=== PATIENT | male | born 1935 | race Caucasian/White ===

== ENCOUNTER → 2017-03-27 | Outpatient (CLI) | payer MEDICARE ==
[~2017-03-27] MED LIST: AMLO5TAB2 PO; ASPI-9 PO; BUDE10.2 IH; CNC1KV IJ; FLUC100T PO; LOVA20TA2 PO; METO-395 PO; NAPR500T4 PO; OMEG-109 PO; OMEP20CA12 PO; RT-ALBUTEROL SULF 2.5 MG/3 ML PRE-MIX VIAL INH ONE; TIOT4MIS2 IH
== END ==
LOC: RT 11:12
PROVIDERS: ATTEND Thoracic Surgery (Cardiothoracic Vascular Surgery)
DX: I71.4 Abdominal aortic aneurysm, without rupture (principal)
CPT/HCPCS: 94060; 94726; 94729

== ENCOUNTER → 2017-04-03 | Outpatient (CLI) | payer MEDICARE ==
[~2017-04-03] VITALS: Ht 182.9 cm; Wt 106.6 kg
[~2017-04-03] MED LIST changes: +REGADENOSON 0.4 MG/5 ML SYR (LEXISCAN) IV ONE; -RT-ALBUTEROL SULF 2.5 MG/3 ML PRE-MIX VIAL INH ONE
[2017-04-03] MEDS: CATHETER FLUSH 10 ML SYR IV PRN ×2 (07:47→09:07)
[2017-04-03 09:04] VITALS: BP 174/79
--- NOTE | 2017-04-03 18:01 | STRESS TEST ---
DATE OF SERVICE: 04/03/2017 LEXISCAN MYOVIEW STRESS TEST REPORT Baseline heart rate is 47. Baseline blood pressure 174/79. Baseline EKG is sinus bradycardia with no ischemic changes. In summary, the patient was injected with 10.65 mCi of technetium-99 Myoview and the resting images were obtained. Then, the patient received 0.4 mg of Lexiscan followed by 30.8 mCi of technetium-99 Myoview. Throughout the test, there were no EKG changes. The resting and stress images were reviewed and compared in the short axis, horizontal long axis, and vertical long axis views. Review of the images showed good radiotracer uptake with no significant ischemia or infarction on SPECT images. SSS is 4, SDS 4, TID value 1.06. On the gated images, the left ventricle appeared to be normal size with normal contractility, calculated ejection fraction 56%. CONCLUSION: 1. The patient tolerated Lexiscan well. 2. No ischemia or infarction on SPECT images. 3. Normal left ventricular size with normal contractility. Calculated ejection fraction 56%. Job ID: [id number] DocumentID: [id number] Dictated Date: 04/03/2017 14:32:58 [employer] Tech Date: 04/03/2017 18:01:16 Dictated By: MORIAH HAMMOND MD
== END ==
LOC: CARD 07:20
PROVIDERS: ATTEND Internal Medicine Cardiovascular Disease
DX: I71.4 Abdominal aortic aneurysm, without rupture (principal)
CPT/HCPCS: 78452; 93017

== ENCOUNTER → 2017-06-15 | Outpatient (CLI) | payer MEDICARE ==
[~2017-06-15] MED LIST changes: +NAPR-915 PO; -NAPR500T4 PO; -REGADENOSON 0.4 MG/5 ML SYR (LEXISCAN) IV ONE
[2017-06-15 11:23] LABS: CALCIUM 9.2 MG/DL (8.5-10.1); CREATININE SERUM 1.22 MG/DL (0.60-1.30); POTASSIUM 4.1 MMOL/L (3.6-5.0)
== END ==
LOC: LAB 10:45
PROVIDERS: ATTEND Thoracic Surgery (Cardiothoracic Vascular Surgery)
DX: I70.1 Atherosclerosis of renal artery (principal)
CPT/HCPCS: 36415; 80048

== ENCOUNTER → 2018-05-07 | Outpatient (CLI) | payer MEDICARE ==
[~2018-05-07] MED LIST changes: -AMLO5TAB2 PO; +AMLO5TAB9 PO
--- NOTE | 2018-05-07 15:08 | Diagnostic Imaging Report ---
PROCEDURE: CT head without contrast. TECHNIQUE: Multiple contiguous axial images were obtained through the brain without the use of intravenous contrast. Auto Exposure Controls were utilized during the CT exam to meet ALARA standards for radiation dose reduction. INDICATION: Dementia and unsteady gait. COMPARISON: No prior studies are available for comparison. FINDINGS: The ventricles and sulci are prominent consistent with the patient's age. No sulcal effacement or midline shift is identified. No acute intra-axial or extra-axial hemorrhage is detected. The cisterns are patent. The visualized paranasal sinuses are clear. IMPRESSION: No acute intracranial process is detected. Dictated by: Dictated on workstation # [id number]
== END ==
LOC: RAD 14:23
PROVIDERS: ATTEND Internal Medicine
DX: F03.90 Unspecified dementia, unspecified severity, without behavioral disturbance, psychotic disturbance, mood disturbance, and anxiety (principal); J44.9 Chronic obstructive pulmonary disease, unspecified
CPT/HCPCS: 70450

== ENCOUNTER 2018-06-09 01:33 | Inpatient (IN) | payer MEDICARE ==
[2018-06-09] VITALS (13 sets, daily range): BP systolic 79–160; BP diastolic 39–106
[~2018-06-09] VITALS: Ht 182.9 cm; Wt 93.0 kg
[~2018-06-09 01:33] MED LIST changes: -CNC1KV IJ; +CNC1KV IM
--- OUTSIDE RECORDS SUMMARY | 2018-06-09 01:38 | XMS REPORT | Continuity of Care Document ---
Author Organization Unknown Address Unknown Allergies Active Description Code Type Severity Reaction Onset Reported/Identified Relationship to Patient Clinical Status Yes No Known Drug Allergies [id number] Drug Allergy Unknown N/A 08/12/2014 Medications There is no data. 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 01/31/2015 JASON PHELAN DO, Ot E53.8 DEFICIENCY OF OTHER SPECIFIED B GROUP 01/31/2015 JASON PHELAN DO, Ot E78.5 HYPERLIPIDEMIA, UNSPECIFIED 01/31/2015 JASON PHELAN DO, Ot G47.33 OBSTRUCTIVE SLEEP APNEA (ADULT) (PEDIATR 01/31/2015 JASON PHELAN DO Ot I10 ESSENTIAL (PRIMARY) HYPERTENSION 01/31/2015 JASON PHELAN DO, Ot I71.4 ABDOMINAL AORTIC ANEURYSM, WITHOUT RUPTU 01/31/2015 JASON PHELAN DO, Ot I87.2 VENOUS INSUFFICIENCY (CHRONIC) (PERIPHER 01/31/2015 JASON PHELAN DO, Ot J44.0 01/31/2015 JASON PHELAN DO, Ot J44.1 CHRONIC OBSTRUCTIVE PULMONARY DISEASE W 01/31/2015 JASON PHELAN DO Ot K21.9 GASTRO-ESOPHAGEAL REFLUX DISEASE WITHOUT 01/31/2015 JASON PHELAN DO Ot M15.9 POLYOSTEOARTHRITIS, UNSPECIFIED 01/31/2015 JASON PHELAN DO Ot R09.02 HYPOXEMIA 01/31/2015 JASON PHELAN DO Ot Z23 ENCOUNTER FOR IMMUNIZATION 01/31/2015 JASON PHELAN DO Ot Z87.891 PERSONAL HISTORY OF NICOTINE DEPENDENCE 03/26/2017 JASON PHELAN DO Ot 786.09 RESPIRATORY ABNORM NEC 03/26/2017 JASON PHELAN DO Ot 496 CHR AIRWAY OBSTRUCT NEC 03/28/2017 XAVI RIOS MD Ot I71.4 ABDOMINAL AORTIC ANEURYSM, WITHOUT RUPTU 04/03/2017 JASON PHELAN DO Ot 786.09 RESPIRATORY ABNORM NEC 04/03/2017 JASON PHELAN DO Ot 496 CHR AIRWAY OBSTRUCT NEC 04/03/2017 XAVI RIOS MD Ot I71.4 ABDOMINAL AORTIC ANEURYSM, WITHOUT RUPTU 04/17/2017 XAVI RIOS MD Ot I71.4 ABDOMINAL AORTIC ANEURYSM, WITHOUT RUPTU 04/23/2017 MORIAH HAMMOND MD Ot I71.4 ABDOMINAL AORTIC ANEURYSM, WITHOUT RUPTU 04/25/2017 XAVI RIOS MD Ot I71.4 ABDOMINAL AORTIC ANEURYSM, WITHOUT RUPTU 05/03/2017 MORIAH HAMMOND MD Ot I71.4 ABDOMINAL AORTIC ANEURYSM, WITHOUT RUPTU 06/17/2017 XAVI RIOS MD Ot I70.1 ATHEROSCLEROSIS OF RENAL ARTERY 06/19/2017 XAVI RIOS MD Ot I70.1 ATHEROSCLEROSIS OF RENAL ARTERY 07/04/2017 XAVI RIOS MD Ot I70.1 ATHEROSCLEROSIS OF RENAL ARTERY 05/06/2018 JASON PHELAN DO Ot 786.09 RESPIRATORY ABNORM NEC 05/06/2018 JASON PHELAN DO Ot 496 CHR AIRWAY OBSTRUCT NEC 05/06/2018 XAVI RIOS MD Ot I71.4 ABDOMINAL AORTIC ANEURYSM, WITHOUT RUPTU 05/06/2018 MORIAH HAMMOND MD Ot I71.4 ABDOMINAL AORTIC ANEURYSM, WITHOUT RUPTU 05/06/2018 XAVI IROS MD Ot I70.1 ATHEROSCLEROSIS OF RENAL ARTERY 05/09/2018 JASON PHELAN DO Ot F03.90 UNSPECIFIED DEMENTIA WITHOUT BEHAVIORAL 05/09/2018 JASON PHELAN DO Ot J44.9 CHRONIC OBSTRUCTIVE PULMONARY DISEASE, U 06/03/2018 JASON PHELAN DO Ot F03.90 UNSPECIFIED DEMENTIA WITHOUT BEHAVIORAL 06/03/2018 JASON PHELAN DO Ot J44.9 CHRONIC OBSTRUCTIVE PULMONARY DISEASE, U 06/04/2018 JASON PHELAN DO Ot F03.90 UNSPECIFIED DEMENTIA WITHOUT BEHAVIORAL 06/04/2018 JASON PHELAN DO, Ot J44.9 CHRONIC OBSTRUCTIVE PULMONARY DISEASE, U Procedures There is no data. Results Test Result Range Whole blood basic metabolic panel - 06/15/17 11:02 Serum or plasma sodium measurement (moles/volume) 135 mmol/L 135-145 Serum or plasma potassium measurement (moles/volume) 4.1 mmol/L 3.6-5.0 Serum or plasma chloride measurement (moles/volume) 100 mmol/L 98-107 Carbon dioxide 26 mmol/L 21-32 Serum or plasma anion gap determination (moles/volume) 9 mmol/L 5-14 Serum or plasma urea nitrogen measurement (mass/volume) 19 mg/dL 7-18 Serum or plasma creatinine measurement (mass/volume) 1.22 mg/dL 0.60-1.30 Serum or plasma urea nitrogen/creatinine mass ratio 16 NRG Serum or plasma creatinine measurement with calculation of estimated glomerular filtration rate 57 NRG Serum or plasma glucose measurement (mass/volume) 93 mg/dL 70-105 Serum or plasma calcium measurement (mass/volume) 9.2 mg/dL 8.5-10.1 Encounters ACCT No. Visit Date/Time Discharge Status Pt. Type Provider Facility Loc./Unit Complaint [id number] 05/07/2018 14:23:00 05/07/2018 23:59:59 CLS Outpatient JASON PHELAN DO [facility] RAD COPD [id number] 06/15/2017 10:45:00 06/15/2017 23:59:59 CLS Outpatient XAVI RIOS MD [facility] LAB I70.1 [id number] 04/03/2017 07:20:00 04/03/2017 23:59:59 CLS Outpatient MORIAH HAMMOND MD [facility] CARD ABD AORTIC ANEURYSM [id number] 03/27/2017 11:12:00 03/27/2017 23:59:59 CLS Outpatient XAVI RIOS MD [facility] RT ABD AORTIC ANEURYSM [id number] 03/25/2017 13:46:00 03/25/2017 23:59:59 CLS Preadmit BLANCA TALBOT, XAVI Ortega [facility] CARD ABD AORTIC ANEURYSM [id number] 01/24/2015 12:13:00 01/31/2015 13:20:00 DIS Inpatient JASON PHELAN DO [facility] 4TH PNUEMONIA [id number] 08/27/2014 14:10:00 08/27/2014 23:59:59 CLS Outpatient JASON PHELAN DO [facility] RT COPD [id number] 08/12/2014 06:33:00 08/12/2014 23:59:59 CLS Outpatient JASON PHELAN DO [facility] CARD DSYPNEA [id number] 09/04/2013 20:02:00 09/05/2013 06:30:00 DIS Outpatient JASON PHELAN DO [facility] SLEEP CEDRIC,AMI 23 [id number] 06/09/2018 01:35:00 ACT Emergency ORLY TALBOT, DANIELLE Horn [facility] ER FALL [id number] 08/28/2014 05:11:32 ACT Document Registration
--- NOTE | 2018-06-09 01:57 | ED Fall/Injury ---
General Chief Complaint: Trauma-Non Activation Stated Complaint: FALL Source: patient, EMS Exam Limitations: physical impairment History of Present Illness Date Seen by Provider: Jun 09, 2018 Time Seen by Provider: 01:21 Initial Comments Here by EMS with report of unwitnessed fall that occurred approximately 0045. Patient was complaining of some right leg pain. No obvious deformity or injury. Seen here for evaluation. Patient suffers from advanced dementia and is poor historian. Patient denies fall or pain currently his only complaint was rough ride from EMS. Denies nausea or vomiting. Occurred: just prior to arrival Severity: mild Injuries/Pain Location: pelvis, lower extremity Context: unknown Loss of Consciousness: unsure Modifying Factors: Improves With Rest Associated Symptoms (Fall): No Abdominal Pain, No Chest Pain; Confusion ( chronic); No Nausea/Vomiting, No Neck Pain, No Shortness of Air Allergies and Home Medications Allergies Coded Allergies: No Known Drug Allergies (Unverified , 08/12/14) Home Medications Amlodipine Besylate 5 Mg Tablet, 5 MG PO DAILY, (Reported) Aspirin/Calcium Carbonate/Mag 325 Mg Tablet, 325 MG PO DAILY, (Reported) Budesonide/Formoterol Fumarate 10.2 Gm Hfa.aer.ad, 1 PUFF IH BID, (Reported) Cyanocobalamin 1,000 Mcg/Ml Inj, 1,000 MCG IJ LAST TU EACH MONTH, (Reported) Fluconazole 100 Mg Tablet, 100 MG PO DAILY Prescribed by: JASON PHELAN on 01/31/15 0920 Lovastatin 20 Mg Tablet, 20 MG PO HS, (Reported) Metoprolol Succinate 100 Mg Tab.er.24h, 100 MG PO HS, (Reported) Naproxen 500 Mg Tablet, 500 MG PO HS, (Reported) Bonham-3 Fatty Acids/Fish Oil 1 Each Capsule, 2 CAP PO DAILY, (Reported) Omeprazole 20 Mg Capsule.dr, 20 MG PO EVERY OTHER DAY, (Reported) Tiotropium Rutledge 4 Gm Mist.inhal, 2 PUFF IH DAILY, (Reported) Patient Home Medication List Home Medication List Reviewed: Yes Review of Systems Review of Systems Constitutional: see HPI; No chills, No fever Respiratory: no symptoms reported Cardiovascular: no symptoms reported Musculoskeletal: see HPI Skin: no symptoms reported Unable to complete review of systems due to advanced dementia and poor historian. Past Zbrejms-Ygdvxz-Hoxrta Hx Past Med/Social Hx: Reviewed Nursing Past Med/Soc Hx Patient Social History Alcohol Use: Denies Use Recreational Drug Use: No Smoking Status: Former Smoker Recent Foreign Travel: No Contact w/Someone Who Travel: No Immunizations Up To Date Tetanus Booster (TDap): More than 5yrs Date of Pneumonia Vaccine: Feb 03, 2009 Date of Influenza Vaccine: Nov 01, 2014 Past Medical History Surgeries: No (unknown) Respiratory: Yes Asthma, COPD Currently Using CPAP: Yes Currently Using BIPAP: No Cardiac: Yes Aneurysm, High Cholesterol, Hypertension Neurological: Yes Dementia Reproductive Disorders: No Musculoskeletal: Yes Arthritis Loss of Vision: Left Hearing Impairment: Deaf Adverse Reaction/Blood Tranf: No Family Medical History Reviewed Nursing Family Hx Alzheimer's disease 19 MOTHER Cardiovascular disease 19 FATHER G8 SISTER Physical Exam Vital Signs Vital Signs - First Documented 06/09/18 01:34 Temp 97.9 Pulse 78 Resp 20 B/P (MAP) 134/84 (101) Pulse Ox 96 O2 Delivery Room Air Capillary Refill : Height, Weight, BMI Height: 6'0.00" Weight: 235lbs. 0.0oz. 106.665227oj; 31.9 BMI Method: General Appearance: WD/WN, no apparent distress HEENT: pharynx normal, other (right pupil 3 mm and left pupil 2 mm) Neck: non-tender, full range of motion, supple Cardiovascular: regular rate, rhythm, no murmur Respiratory: lungs clear, normal breath sounds Gastrointestinal: non tender, soft Back: normal inspection, no CVA tenderness, no vertebral tenderness Extremities: non-tender, normal inspection, pelvis stable, other (tight muscles to both lower extremities with no obvious deformity, contusion or elicitation of pain.) Neurologic/Psychiatric: alert, other (oriented to self) Skin: normal color, warm/dry Benitez Coma Score Best Eye Response: (4) Open Spontaneously Best Verbal Response: (4) Confused Conversation Best Motor Response: (6) Obeys Commands Progress/Results/Core Measures Results/Orders Lab Results Laboratory Tests Test 06/09/18 04:14 Range/Units White Blood Count 9.6 4.3-11.0 10^3/uL Red Blood Count 3.87 L 4.35-5.85 10^6/uL Hemoglobin 11.8 L 13.3-17.7 G/DL Hematocrit 38 L 40-54 % Mean Corpuscular Volume 98 80-99 FL Mean Corpuscular Hemoglobin 30 25-34 PG Mean Corpuscular Hemoglobin Concent 31 L 32-36 G/DL Red Cell Distribution Width 14.9 H 10.0-14.5 % Platelet Count 181 130-400 10^3/uL Mean Platelet Volume 9.3 7.4-10.4 FL Neutrophils (%) (Auto) 78 H 42-75 % Lymphocytes (%) (Auto) 10 L 12-44 % Monocytes (%) (Auto) 9 0-12 % Eosinophils (%) (Auto) 3 0-10 % Basophils (%) (Auto) 0 0-10 % Neutrophils # (Auto) 7.5 1.8-7.8 X 10^3 Lymphocytes # (Auto) 1.0 1.0-4.0 X 10^3 Monocytes # (Auto) 0.8 0.0-1.0 X 10^3 Eosinophils # (Auto) 0.3 0.0-0.3 10^3/uL Basophils # (Auto) 0.0 0.0-0.1 10^3/uL Prothrombin Time 15.4 H 12.2-14.7 SEC INR Comment 1.2 0.8-1.4 Activated Partial Thromboplast Time 24 24-35 SEC Sodium Level 140 135-145 MMOL/L Potassium Level 4.1 3.6-5.0 MMOL/L Chloride Level 104 98-107 MMOL/L Carbon Dioxide Level 25 21-32 MMOL/L Anion Gap 11 5-14 MMOL/L Blood Urea Nitrogen 19 H 7-18 MG/DL Creatinine 1.16 0.60-1.30 MG/DL Estimat Glomerular Filtration Rate 60 BUN/Creatinine Ratio 16 Glucose Level 126 H 70-105 MG/DL Calcium Level 9.0 8.5-10.1 MG/DL Corrected Calcium 9.7 8.5-10.1 MG/DL Total Bilirubin 0.6 0.1-1.0 MG/DL Aspartate Amino Transf (AST/SGOT) 22 5-34 U/L Alanine Aminotransferase (ALT/SGPT) 31 0-55 U/L Alkaline Phosphatase 59 40-136 U/L Total Protein 7.4 6.4-8.2 GM/DL Albumin 3.1 L 3.2-4.5 GM/DL My Orders Orders - DANIELLE VILLALBA MD Ct Head/Cervical Spine Wo (06/09/18 01:40) Pelvis/Eddie Hips 5> Views (06/09/18 01:40) Knee, Left, 3 Views (06/09/18 02:17) Chest 1 View, Ap/Pa Only (06/09/18 02:49) Ns Iv 1000 Ml (Sodium Chloride 0.9%) (06/09/18 03:30) Ekg Tracing (06/09/18 03:18) Cbc With Automated Diff (06/09/18 04:05) Comprehensive Metabolic Panel (06/09/18 04:05) Protime With Inr (06/09/18 04:05) Partial Thromboplastin Time (06/09/18 04:05) Catheter(Urinary) Insert & Ass 03,15 (06/09/18 04:18) Fentanyl Injection (Sublimaze Injection (06/09/18 04:28) Fentanyl Injection (Sublimaze Injection (06/09/18 04:32) Fentanyl Injection (Sublimaze Injection (06/09/18 06:17) Medications Given in ED Current Medications Medications Dose Ordered Sig/Ginger Route Start Time Stop Time Status Last Admin Dose Admin Fentanyl Citrate 25 mcg ONCE PRN IVP 06/09/18 04:32 06/09/18 04:32 25 MCG Vital Signs/I&O 06/09/18 01:34 Temp 97.9 Pulse 78 Resp 20 B/P (MAP) 134/84 (101) Pulse Ox 96 O2 Delivery Room Air Progress Progress Note : Progress Note Seen and evaluated on arrival by EMS. CT head and neck ordered. X-ray of pelvis and bilateral hips ordered. Monitor patient. 0215: Family arrives. Apparently has problems with his left knee so we will add that x-ray as well. 7: X-ray shows left hip fracture. I did discuss the case with Dr. Maldonado at 0312 and he accepts patient and consult. I did discuss the case with Dr. Oliveira at 0317 accepts admission. We will get EKG. Patient be nothing by mouth pending medical clearance. Normal saline 100 mL an hour initiated. We are awaiting [facility] bed so will remain in ER currently pending bed assignment. I did discuss all the findings concerns with the patient's family who agree with plan. Admit, inpatient status. Initial ECG Impression Date: Jun 09, 2018 Initial ECG Impression Time: 03:32 Initial ECG Rate: 71 Initial ECG Rhythm: Normal Sinus Initial ECG Impression: Normal Initial ECG Comparisson: No Previous ECG Available Comment Sinus rhythm with normal axis. No evidence of ST elevation [place]. No previous available for comparison. Interpreted by me. Diagnostic Imaging Diagonstic Imaging: Xray Plain Films/CT/US/NM/MRI: pelvis, hip Comments Left hip fracture surgical neck Diagonstic Imaging: Xray Plain Films/CT/US/NM/MRI: knee Comments Significant degeneration but no fracture Diagonstic Imaging: Xray Plain Films/CT/US/NM/MRI: chest Comments No acute findings Diagonstic Imaging: CT Plain Films/CT/US/NM/MRI: c-spine, head Departure Communication (Admissions) Time/Spoke to Admitting Phy: 03:17 Time/Spoke to Consulting Phy: 03:12 Impression Primary Impression: Hip fracture, left Qualified Codes: S72.002A - Fracture of unspecified part of neck of left femur , initial encounter for closed fracture Disposition: ADMITTED INPATIENT Condition: Stable Admissions Decision to Admit Reason: Admit from ER (Trauma) Decision to Admit/Date: Jun 09, 2018 Time/Decision to Admit Time: 03:12 Departure-Patient Inst. Referrals: JASON PHELAN DO (PCP/Family) Primary Care Physician DANIELLE VILLALBA MD Jun 09, 2018 01:57
[2018-06-09] MEDS ORDERED: NS IV 1000 ML 1,000 ML IV SCH ×3 (03:30→15:39)
[2018-06-09 04:24] LABS: BASOPHILS % (AUTO) 0 % (0-10); EOSINOPHILS # (AUTO) 0.3 10^3/uL (0.0-0.3); EOSINOPHILS % (AUTO) 3 % (0-10); HEMATOCRIT 38 % (40-54); HEMOGLOBIN 11.8 G/DL (13.3-17.7); LYMPHOCYTES % (AUTO) 10 % (12-44); MEAN CORPUSCULAR HGB CONC 31 G/DL (32-36); MEAN CORPUSCULAR VOLUME 98 FL (80-99); MEAN PLATELET VOLUME 9.3 FL (7.4-10.4); MONOCYTES # (AUTO) 0.8 X 10^3 (0.0-1.0); MONOCYTES % (AUTO) 9 % (0-12); NEUTROPHILS # (AUTO) 7.5 X 10^3 (1.8-7.8); NEUTROPHILS % (AUTO) 78 % (42-75); PLATELET COUNT 181 10^3/uL (130-400); RED CELL DISTRIBUTION WIDTH 14.9 % (10.0-14.5); WHITE BLOOD COUNT 9.6 10^3/uL (4.3-11.0)
[2018-06-09 04:27] LABS: MEAN CORPUSCULAR HEMOGLOBIN 30 PG (25-34)
[2018-06-09] MEDS ORDERED: fentaNYL INJECTION 100 MCG/2 ML AMP ONE ×2 (04:28→13:06)
[2018-06-09] MEDS ORDERED: fentaNYL INJECTION 100 MCG/2 ML AMP IVP PRN (04:32)
[2018-06-09 04:35] LABS: INR 1.2 (0.8-1.4); PROTHROMBIN TIME PATIENT 15.4 SEC (12.2-14.7)
[2018-06-09 04:44] LABS: ALBUMIN 3.1 GM/DL (3.2-4.5); BILIRUBIN,TOTAL 0.6 MG/DL (0.1-1.0); CREATININE SERUM 1.16 MG/DL (0.60-1.30); POTASSIUM 4.1 MMOL/L (3.6-5.0); TOTAL PROTEIN 7.4 GM/DL (6.4-8.2)
--- NOTE | 2018-06-09 05:33 | Diagnostic Imaging Report ---
INDICATION: Fall. COMPARISON: 01/24/2015 FINDINGS: Single frontal view of the chest demonstrates normal heart size and pulmonary vascularity. The lungs are well aerated and clear. No large pleural effusion or pneumothorax is seen. The visualized osseous structures show no acute abnormalities. There is calcified aortic atherosclerosis. IMPRESSION: 1. No acute cardiopulmonary process. Dictated by: Dictated on workstation # [id number]
--- NOTE | 2018-06-09 05:45 | Diagnostic Imaging Report ---
INDICATION: Fall. COMPARISON: None. FINDINGS: 2 views of the left knee were obtained. Evaluation is suboptimal given poor positioning. There is, however, no convincing radiographic evidence of acute fracture or dislocation. Joint spaces appear maintained. Osseous structures are intact. There is no large joint effusion. No unexpected radiopaque foreign bodies are seen. Note is made of moderate osteoarthritic changes. IMPRESSION: 1. Suboptimal radiographic exam of the left knee, but no convincing evidence of acute fracture or dislocation. 2. Moderate osteoarthritic changes. Dictated by: Dictated on workstation # [id number]
--- NOTE | 2018-06-09 05:46 | Diagnostic Imaging Report ---
INDICATION: Fall. Hip pain. COMPARISON: None FINDINGS: Single frontal radiographic view of the pelvis and 2 dedicated radiographic views of each hip were obtained. There is acute fracture through the proximal left femoral neck. There is moderate varus angulation of the distal fracture fragment. Femoral acetabular joint spaces are otherwise maintained, bilaterally. There is no evidence of acute fracture on the right. Bony pelvis is intact. Pubic symphysis is within normal limits. SI joints are symmetric. Note is made of indwelling aortobiiliac stents. IMPRESSION: 1. Acute fracture of the proximal left femur. Dictated by: Dictated on workstation # [id number]
[2018-06-09] MEDS ORDERED: fentaNYL INJECTION 100 MCG/2 ML AMP IVP STA (06:17)
--- NOTE | 2018-06-09 06:59 | Diagnostic Imaging Report ---
PROCEDURE: CT head and CT cervical spine without contrast. TECHNIQUE: Multiple contiguous axial images were obtained through the brain and cervical spine without the use of intravenous contrast. Sagittal and coronal reformations through the cervical spine were then performed. Auto Exposure Controls were utilized during the CT exam to meet ALARA standards for radiation dose reduction. INDICATION: Fall, head and neck injury. COMPARISON: None CT head: Minimal age-related cerebral velocity and chronic small vessel ischemic changes are present. There is no midline shift or mass effect. There is no hemorrhage or evidence of acute ischemia. No extra-axial fluid collection is seen. There is no skull fracture. Paranasal sinuses and mastoids are clear. IMPRESSION: No acute intracranial abnormalities. CT cervical spine: Alignment is normal. There is no subluxation or fracture. No osseous lesion is seen. Mild to moderate diffuse degenerative changes are present. IMPRESSION: No traumatic malalignment or fracture. Agree with preliminary reports. Dictated by: Dictated on workstation # [id number]
[2018-06-09] MEDS ORDERED: CATHETER FLUSH 10 ML SYR IV PRN (08:15)
[2018-06-09] MEDS ORDERED: fentaNYL INJECTION 100 MCG/2 ML AMP IV PRN (08:15)
[2018-06-09] MEDS ORDERED: ONDANSETRON 4 MG/2 ML (SDV) Z0FRAN IV PRN (08:15)
--- NOTE | 2018-06-09 08:30 | NUR ---
Lisandro] admitted to room 432-1, with an admitting diagnosis of L hip fracture, on 06/09/18 from ED via stretcher, accompanied by . LISANDRO JOENS introduced to surroundings, call light, bed controls, phone, TV, temperature control, lights, meal times, smoking policy, visitor policy, side rail policy, bathrooms and showers. Patient Rights given to patient in the handbook.LISANDRO JONES verbalizes understanding that [facility] is not responsible for the loss or damage to any personal effects or valuables that are kept in the patients possession during their hospitalization. The following Patient Care Plans were discussed with the : Discharge Planning, medications, pain management, and dehydration. LISANDRO JONES verbalizes understanding of Interdisciplinary Patient Education. Patient and/or family were informed about the Rapid Response Team and its purpose.
[2018-06-09] MEDS ORDERED: RISP1TAB3 PO (09:50)
[2018-06-09] MEDS ORDERED: TRAZ-189 PO (09:50)
[2018-06-09] MEDS ORDERED: DONE10TA41 PO (09:50)
[2018-06-09] MEDS ORDERED: FLUT1BLS INH (09:50)
[2018-06-09] MEDS ORDERED: ALBU2.5V4 NEB (09:50)
[2018-06-09] MEDS ORDERED: [UNRECOGNIZED DRUG - CODE] TP (09:50)
[2018-06-09] MEDS ORDERED: NYST15CR TOP (09:50)
[2018-06-09] MEDS ORDERED: ASPI-999 PO (09:50)
--- NOTE | 2018-06-09 09:53 | NUR ---
UPDATED MED REC WITH MEDICATION REVIEW FROM [facility]. THE LIST ON THE CHART WAS MISSING PAGE 4 SO I CALLED AND HAD IT RE-FAXED AND UPDATED IT IN THE COMPUTER. ALSO THE REPORT FROM THE [facility] STATES METOPROLOL TARTRATE 100MG DAILY HOWEVER I CAN SEE THAT [facility] FILLED THE SUCCINATE. I CALLED THEM AND THEY VERIFIED THE CARD DID STATE METOPROLOL ER DAILY. I MADE THE CHANGE ON THE MED REC AT THIS TIME.
[2018-06-09] MEDS ORDERED: ETOMIDATE IV SOLN 20 MG/10 ML VIAL ONE (13:06)
[2018-06-09] MEDS ORDERED: ROCURONIUM 10 MG/ML 5 ML SYRINGE IV ONE ×2 (13:06→14:54)
[2018-06-09] MEDS ORDERED: SEVOFLURANE (ULTANE) 15 ML INHAL SOLN ONE ×5 (13:06→15:37)
[2018-06-09] MEDS ORDERED: ONDANSETRON 4 MG/2 ML (SDV) Z0FRAN ONE (13:06)
--- NOTE | 2018-06-09 13:10 | Pulmonary Consultation ---
History of Present Illness History of Present Illness Date of Consultation 06/09/18 13:05 Time Seen by Provider: 13:05 Date of Admission History of Present Illness 83yo with hx of severe COPD, severe Alzheimer/dementia presented after unwitnessed fall around 0045. Upon ED presentation pt was complaining of righ leg pain. Pt does not remember falling. PT was found to have a left femoral neck fracture. Ortho is planning on taking patient to surgery today for surgical repair. Pt is on 3 liter NC. Allergies and Home Medications Allergies Coded Allergies: No Known Drug Allergies (Unverified , 08/12/14) Home Medications Albuterol Sulfate 2.5 Mg/3 Ml Vial.neb, 2.5 MG NEB BID, (Reported) Amlodipine Besylate 5 Mg Tablet, 5 MG PO DAILY, (Reported) Aspirin 81 Mg Tab.chew, 81 MG PO DAILY, (Reported) Cyanocobalamin 1,000 Mcg/Ml Inj, 1,000 MCG IM OF EACH MONTH, (Reported) Donepezil HCl 10 Mg Tablet, 10 MG PO DAILY, (Reported) Fluticasone/Vilanterol 1 Each Blst.w.dev, 1 PUFF INH DAILY, (Reported) Lovastatin 20 Mg Tablet, 20 MG PO DAILY, (Reported) Metoprolol Succinate 100 Mg Tab.er.24h, 100 MG PO DAILY, (Reported) Naproxen 500 Mg Tablet, 500 MG PO DAILY, (Reported) Nystatin 15 Gm Cream..g., TOP BID, (Reported) APPLY TO MICHAELLE AREA Risperidone 1 Mg Tablet, 1 MG PO HS, (Reported) Skin Cleanser Comb No.[id number] Ml [place], TP TID, (Reported) APPLY TO COCCYX AREA THREE TIMES DAILY FOR SPLIT UNTIL CLOSED Trazodone HCl 50 Mg Tablet, 50 MG PO HS, (Reported) Past Nupuipl-Qrvrpl-Hazwmo Hx Past Med/Social Hx: Reviewed Nursing Past Med/Soc Hx Patient Social History Alcohol Use: Denies Use Recreational Drug Use: No Smoking Status: Former Smoker Recent Foreign Travel: No Contact w/Someone Who Travel: No Recent Infectious Disease Expo: No Recent Hopitalizations: No Physical Abuse: No Sexual Abuse: No Mistreated: No Fear: No Immunizations Up To Date Tetanus Booster (TDap): More than 5yrs Date of Pneumonia Vaccine: Feb 03, 2009 Date of Influenza Vaccine: Nov 01, 2014 Seasonal Allergies Seasonal Allergies: No Past Medical History Surgeries: No (unknown) Respiratory: Yes Asthma, COPD Currently Using CPAP: Yes Currently Using BIPAP: No Cardiac: Yes Aneurysm, High Cholesterol, Hypertension Neurological: Yes Dementia Reproductive Disorders: No Genitourinary: No Gastrointestinal: No Musculoskeletal: Yes Arthritis Endocrine: No HEENT: No Loss of Vision: Left Hearing Impairment: Deaf Cancer: No Psychosocial: No Integumentary: No Blood Disorders: No Adverse Reaction/Blood Tranf: No Family Medical History Reviewed Nursing Family Hx Alzheimer's disease 19 MOTHER Cardiovascular disease 19 FATHER G8 SISTER Sepsis Event Evaluation Height, Weight, BMI Height: 6'0.00" Weight: 205lbs. 0.0oz. 92.198435jn; 31.9 BMI Method:Stated Exam Exam Vital Signs Date Time Temp Pulse Resp B/P (MAP) Pulse Ox O2 Delivery O2 Flow Rate FiO2 06/09/18 08:30 97 Nasal Cannula 3.00 06/09/18 07:41 97.9 70 20 114/72 (86) 97 Nasal Cannula 3.00 06/09/18 01:34 97.9 78 20 134/84 (101) 96 Room Air Height & Weight Height: 6'0.00" Weight: 205lbs. 0.0oz. 92.457982sz; 31.9 BMI Method:Stated Capillary Refill: Less Than 3 Seconds Gastrointestinal: non tender, soft Results Lab Laboratory Tests 06/09/18 04:14 Assessment/Plan Assessment/Plan Left femoral neck fracture -Surgical repair today -Pt is ok from pulmonary standpoint for surgery -If he needs to remain on vent after surgery I will assist with extubation -Pain control Severe Alzheimers/Dementia Severe COPD -Oxygen -Will start LUIS Oh DO Jun 09, 2018 13:10
--- NOTE | 2018-06-09 13:25 | NUR ---
PATIENT OFF FLOOR TO SURGERY AT THIS TIME.
[2018-06-09] MEDS: LACTATED RINGERS 1,000 ML IV PRN ×2 (13:35→15:00)
[2018-06-09] MEDS ORDERED: ceFAZolin INJECTION 2,000 MG ONE (13:41)
[2018-06-09] MEDS ORDERED: ceFAZolin 2 GM IV Premixed 50 ML IV ONE (13:45)
--- NOTE | 2018-06-09 13:56 | History & Physical-Hospitalist ---
History of Present Illness HPI/Chief Complaint The patient is an 83-year-old white male care home patient who apparently fell shortly after midnight and was not observed. He reported pain and was unwilling to bear weight and was sent to the emergency room where he was found to have a hip fracture. His only other health problem besides the dementia is that of mild to moderate COPD. He is related to Dr. Crabtree who spoke to me earlier today and related that the family was concerned about performing in the operative procedure on him. He told them and I would second that that this really is not about prolonging life but rather providing pain relief to the patient and comfort to those who have to care for him after suffering this injury. Source: family Exam Limitations: no limitations Date Seen 06/09/18 Time Seen by a Provider: 13:48 Attending Physician Blanca Oliveira MD PCP Juan Davalos DO Referring Physician Date of Admission Jun 09, 2018 at 03:18 Home Medications & Allergies Home Medications Reviewed patient Home Medication Reconciliation performed by pharmacy medication reconciliations field operations technician and/or nursing. Patients Allergies have been reviewed. Allergies Allergies Coded Allergies No Known Drug Allergies (Unverified08/12/14) Past Riyuwbo-Mqnkcj-Yclyde Hx Past Med/Social Hx: Reviewed Nursing Past Med/Soc Hx Patient Social History Alcohol Use: Denies Use Recreational Drug Use: No Smoking Status: Former Smoker Recent Foreign Travel: No Contact w/other who traveled: No Recent Hopitalizations: No Recent Infectious Disease Expo: No Immunizations Up To Date Tetanus Booster (TDap): More than 5yrs Date of Pneumonia Vaccine: Feb 03, 2009 Date of Influenza Vaccine: Nov 01, 2014 Seasonal Allergies Seasonal Allergies: No Past Medical History Currently Using CPAP: Yes Currently Using BIPAP: No Cardiac: Aneurysm, High Cholesterol, Hypertension Neurological: Dementia Reproductive: No Musculoskeletal: Arthritis Loss of Vision: Left Hearing Impairment: Deaf History of Blood Disorders: No Adverse Reaction to Blood Person: No Family History Reviewed Nursing Family Hx Alzheimer's disease 19 MOTHER Cardiovascular disease 19 FATHER G8 SISTER Review of Systems Constitutional: see HPI, other (the patient is very demented and does not know the date or his circumstance.) Physical Exam Physical Exam Vital Signs Vital Signs - First Documented 06/09/18 06/09/18 01:34 07:41 Temp 97.9 Pulse 78 Resp 20 B/P (MAP) 134/84 (101) Pulse Ox 96 O2 Delivery Room Air O2 Flow Rate 3.00 Capillary Refill : Less Than 3 SecondsLess Than 3 Seconds Height, Weight, BMI Height: 6'0.00" Weight: 205lbs. 0.0oz. 92.211911ia; 31.9 BMI Method:Stated General Appearance: Mild Distress Eyes: Bilateral Eye Normal Inspection HEENT: Normal ENT Inspection Neck: Normal Inspection Respiratory: Chest Non Tender, Lungs Clear, Normal Breath Sounds Cardiovascular: Regular Rate, Rhythm Gastrointestinal: Normal Bowel Sounds Back: Normal Inspection Extremity: Normal Capillary Refill, Normal Inspection, Normal Range of Motion Neurologic/Psychiatric: Alert, Oriented x3, No Motor/Sensory Deficits, Normal Mood/Affect Skin: Normal Color, Warm/Dry Lymphatic: No Adenopathy Results Results/Procedures Labs Laboratory Tests 06/09/18 04:14 Patient resulted labs reviewed. Assessment/Plan Admission Diagnosis 1.acute hip fracture. 2.mild to moderate COPD. 3.severe dementia. Admission Status: Inpatient Order (span 2 midnights) Reason for Inpatient Admission: Operative repair hip fracture NICKO WEINSTEIN MD Jun 09, 2018 13:56
--- NOTE | 2018-06-09 13:56 | Consultation ---
History of Present Illness History of Present Illness Patient Consulted On(ivelisse/time) 06/09/18 13:51 Date Seen by Provider: Jun 09, 2018 Time Seen by Provider: 13:51 Reason for Visit: Left hip fracture History of Present Illness Mr. Bazan is an 83 y/o white male with h/o advanced dementia that presents with CC of severe Left hip pain that began after an unwitnessed fall while at his nursing facility. He was transferred to the [facility] ED for evaluation where XRs of the Left hip demonstrated a displaced femoral neck fracture. The orthopedic service was consulted for definitive management of his injury. Per the ED record, he denies head trauma/LOC, also denies additional associated musculoskeletal injuries. He currently has no additional complaints. Allergies and Home Medications Allergies Coded Allergies: No Known Drug Allergies (Unverified , 08/12/14) Home Medications Albuterol Sulfate 2.5 Mg/3 Ml Vial.neb, 2.5 MG NEB BID, (Reported) Amlodipine Besylate 5 Mg Tablet, 5 MG PO DAILY, (Reported) Aspirin 81 Mg Tab.chew, 81 MG PO DAILY, (Reported) Cyanocobalamin 1,000 Mcg/Ml Inj, 1,000 MCG IM OF EACH MONTH, (Reported) Donepezil HCl 10 Mg Tablet, 10 MG PO DAILY, (Reported) Fluticasone/Vilanterol 1 Each Blst.w.dev, 1 PUFF INH DAILY, (Reported) Lovastatin 20 Mg Tablet, 20 MG PO DAILY, (Reported) Metoprolol Succinate 100 Mg Tab.er.24h, 100 MG PO DAILY, (Reported) Naproxen 500 Mg Tablet, 500 MG PO DAILY, (Reported) Nystatin 15 Gm Cream..g., TOP BID, (Reported) APPLY TO MICHAELLE AREA Risperidone 1 Mg Tablet, 1 MG PO HS, (Reported) Skin Cleanser Comb No.[id number] Ml [place], TP TID, (Reported) APPLY TO COCCYX AREA THREE TIMES DAILY FOR SPLIT UNTIL CLOSED Trazodone HCl 50 Mg Tablet, 50 MG PO HS, (Reported) Patient Home Medication List Home Medication List Reviewed: Yes Past Tvdyvsp-Rrwykl-Iidpmv Hx Past Med/Social Hx: Reviewed Nursing Past Med/Soc Hx Patient Social History Alcohol Use: Denies Use Recreational Drug Use: No Smoking Status: Former Smoker Recent Foreign Travel: No Contact w/Someone Who Travel: No Recent Infectious Disease Expo: No Recent Hopitalizations: No Physical Abuse: No Sexual Abuse: No Mistreated: No Fear: No Immunizations Up To Date Tetanus Booster (TDap): More than 5yrs Date of Pneumonia Vaccine: Feb 03, 2009 Date of Influenza Vaccine: Nov 01, 2014 Seasonal Allergies Seasonal Allergies: No Past Medical History Surgeries: No (unknown) Respiratory: Yes Asthma, COPD Currently Using CPAP: Yes Currently Using BIPAP: No Cardiac: Yes Aneurysm, High Cholesterol, Hypertension Neurological: Yes Dementia Reproductive Disorders: No Genitourinary: No Gastrointestinal: No Musculoskeletal: Yes Arthritis Endocrine: No HEENT: No Loss of Vision: Left Hearing Impairment: Deaf Cancer: No Psychosocial: No Integumentary: No Blood Disorders: No Adverse Reaction/Blood Tranf: No Family Medical History Reviewed Nursing Family Hx Alzheimer's disease 19 MOTHER Cardiovascular disease 19 FATHER G8 SISTER Review of Systems-General Constitutional: no symptoms reported EENTM: no symptoms reported Respiratory: no symptoms reported Cardiovascular: no symptoms reported Gastrointestinal: no symptoms reported Genitourinary: no symptoms reported Musculoskeletal: joint pain Psychiatric/Neurological: Other (dementia) Physical Exam-General Problems Physical Exam Vital Signs Vital Signs - First Documented 06/09/18 06/09/18 01:34 07:41 Temp 97.9 Pulse 78 Resp 20 B/P (MAP) 134/84 (101) Pulse Ox 96 O2 Delivery Room Air O2 Flow Rate 3.00 Capillary Refill : Less Than 3 SecondsLess Than 3 Seconds General Appearance: no apparent distress Eyes: Bilateral Eye Normal Inspection HEENT: PERRL/EOMI, normal ENT inspection Neck: non-tender, full range of motion, supple, normal inspection Respiratory: no respiratory distress, no accessory muscle use Cardiovascular: normal peripheral pulses, regular rate, rhythm, no edema Peripheral Pulses: 2+ Dorsalis Pedis (R), 2+ Left Dors-Pedis (L), 2+ Radial Pulses (R), 2+ Radial Pulses (L) Gastrointestinal: non tender, soft Extremities: no pedal edema, no calf tenderness, normal capillary refill, other (LLE: shortened/externally rotated, +log roll, motor/sensation grossly intact, skin intact, no open wounds, foot well perfused, all compartments soft.) Neurologic/Psychiatric: forestry contractor II-XII nml as tested, no motor/sensory deficits, alert, disoriented x 3 Skin: normal color, warm/dry Laboratory Tests 06/09/18 04:14 Assessment/Plan Assessment/Plan Admission Diagnosis/Plan A/P: 83 y/o male demented SNF resident with a displaced subcapital fracture Left femoral neck that occurred secondary to a mechanical GLF. Unstable injury that will need operative stabilization. Surgical plan for hemiarthroplasty Left hip. I discussed the diagnosis and treatment plan with the patient's family in detail including the risks, benefits, expected outcomes and indications. All of their questions have been answered to their satisfaction. They have given informed written consent to proceed as planned. GRECIA JEAN DO Jun 09, 2018 13:56
[2018-06-09] MEDS ORDERED: LIDOCAINE PF 2% 5 ML (XYLOCAINE) VIAL ONE (14:22)
[2018-06-09] MEDS ORDERED: NEOSTIGMINE 1 MG/ML 5 ML SYRINGE ONE (14:23)
[2018-06-09] MEDS ORDERED: GLYCOPYRROLATE 0.2 MG/ML (ROBINUL) 2 ML VIAL ONE (14:23)
--- NOTE | 2018-06-09 15:39 | Progress Note-Post Operative ---
Post-Operative Progess Note Surgeon (s)/Senior Planning Manager (s) Surgeon GRECIA JEAN DO Senior Planning Manager: Yon Humphreys PA-C Pre-Operative Diagnosis Displaced subcapital fracture Left femoral neck Post-Operative Diagnosis Same Procedure & Operative Findings Date of Procedure 06/09/18 Procedure Performed/Findings Uncemented Bipolar Hemiarthroplasty Left Hip Anesthesia Type GETA Estimated Blood Loss Estimated blood loss (mL): 200 Specimens/Packing Specimens Removed None Packing: None Drains: none Disposition: tolerated the procedure well without complications; transferred to PACU in stable condition. GRECIA JEAN DO Jun 09, 2018 15:39
[2018-06-09] MEDS ORDERED: fentaNYL INJECTION 100 MCG/2 ML AMP IVP ONE (16:15)
[2018-06-09] MEDS ORDERED: ONDANSETRON 4 MG/2 ML (SDV) Z0FRAN IVP PRN (16:15)
--- NOTE | 2018-06-09 16:25 | NUR ---
Responded to code blue call in recovery room, pt had some respiratory issues and was reintubated, met with family, gathered them in the consult room, kept them informed.
[2018-06-09] MEDS ORDERED: LACTATED RINGERS 1,000 ML IV ONE (16:42)
[2018-06-09] MEDS ORDERED: LACTATED RINGERS 500 ML IV SCH (17:00)
--- NOTE | 2018-06-09 17:17 | Pulmonary Progress Note ---
Standard Progress Note Progress Notes Time Seen by Provider: 17:11 S/p surgery CODE Blue was called secondary to hypoxia. Pt was reintubated per anesthesia. No chest compressions were done. No defibrillation. I discussed pts current condition with family and plan of care. Plan is to leave pt on vent until tomorrow morning and attempt to wean vent. Family wants to make pt a NO CODE/ NO chest compression/ No Defibrillation. Assessment & Plan Acute respiratory failure s/p surgery -Will leave pt on vent today and attempt extubation tomorrow morning. -Will start Fentanyl and Propofol -Pt is no Code blue, no chest compressions, no shocking Left femoral neck fracture s/p surgical repair -Pain control Severe Alzheimers/Dementia Severe COPD -Oxygen -Will start SVNs Critical Care: Critically Ill Patient Time spent with patient (mins): 30 LUIS KRISHNAN DO Jun 09, 2018 17:17
--- NOTE | 2018-06-09 17:25 | Diagnostic Imaging Report ---
INDICATION: Post code, intubation. TECHNIQUE: Single-view chest at 05:08 p.m. CORRELATION STUDY: 06/09/2018. FINDINGS: Endotracheal tube has been placed with tip superimposed over the trachea just below the left clavicle. Heart size and mediastinum are stable with vasculature appearing perhaps slightly increased. Patchy densities particularly at the right mid and lower lung field appear changed from prior study. Small right pleural effusion. Cerclage wire left mid clavicle. IMPRESSION: 1. Interval intubation. 2. Scattered patchy pulmonary parenchymal densities are present appearing changed from prior study, could be reflective of underlying infiltrate, edema, or even perhaps aspiration given intubation. Small right pleural effusion. 3. Vasculature slightly increased from prior study. Dictated by: Dictated on workstation # [id number]
--- NOTE | 2018-06-09 17:29 | Diagnostic Imaging Report ---
INDICATION: Postoperative left hip. TECHNIQUE: AP pelvis, 5:12 p.m. CORRELATION STUDY: 06/09/2018. FINDINGS: Interval surgical changes with placement of a unipolar left hip arthroplasty. Soft tissue gas collections and clips are present. The remainder of the pelvis is otherwise intact and unremarkable. Vascular stents are in expected location in the common iliac arteries. IMPRESSION: Interval surgical changes of a left unipolar hip arthroplasty. Dictated by: Dictated on workstation # [id number]
[2018-06-09] MEDS: LACTATED RINGERS 1,000 ML IV SCH (17:34)
[2018-06-09] MEDS: PROPOFOL DRIP (ICU) 100 ML IV SCH (17:34)
--- NOTE | 2018-06-09 19:05 | Anesthesia-Procedure Note ---
Procedures/Interventions Procedure Start/Stop/Diagnosis Date of Procedure: Jun 09, 2018 Start Time: 16:15 Referring Physician: Joel Preprocedural Diagnosis: Respiratory Failure/Hip Fx Brief History Responded to PACU for pt "not moving any air". Upon arrival, nursing staff was ventilating with BVM, O2 sats in the 80's. Pt was extubated in OR aprox 20-30 minutes earlier after meeting extubation criteria. TV in the 600's with sats 99 -100% opening eyes on command. Pt had since become non responsive with sats falling. Assisted with BVM, pt was given 100mg Anectine and re-intubated with a MAC 4 #8.0 ETT x1 attempt. BS=B/L sats, increased to 99% and color change was noted on EZ cap. Tube was secured at aprox 25cm to lip. RT assumed ventilations with BVM awaiting ventilator. Dr. Crabtree arrived at beside and was given report on incident. Left pt in care of RN for transfer to ICU. VSS. Stop Time: 16:25 Postprocedural Diagnosis: Respiratory Failure/Hip Fx FLORENCE GOLD CRNA Jun 09, 2018 19:05
[2018-06-09] MEDS: RT-ALBUTEROL/IPRATROPIUM 3 ML (DUONEB) VIAL INH SCH ×2 (19:29→22:17)
[2018-06-09] MEDS: KETOROLAC 15 MG/ML VIAL IM/IV SCH ×2 (20:03→21:37)
[2018-06-09] MEDS: fentaNYL INJECTION 1,250 MCG in NS (IVPB) 250 ML IV SCH ×2 (20:03→23:33)
[2018-06-09] MEDS: hydrALAZINE (APESOLINE) 20 MG/ML VIAL IV SCH (20:04)
[2018-06-09] MEDS: fentaNYL INJECTION 100 MCG/2 ML AMP IV PRN ×2 (21:36→23:23)
[2018-06-09 22:27] LABS: ABG BASE EXCESS 2.9 MMOL/L (-2.5-2.5); ABG OXYGEN SATURATION 100 % (94-100); ABG PCO2 56 MMHG (35-45); ABG PO2 252 MMHG (79-93); ABG TCO2 30.4 MMOL/L (21.0-31.0)
[2018-06-09 22:31] LABS: ABG PH 7.32 (7.37-7.43); ALLENS TEST YES-POS; INSPIRED O2 70%; PATIENT TEMP 97.7; VENTILATOR YES
[2018-06-09] MEDS: ceFAZolin 2 GM IV Premixed 50 ML IV SCH (23:25)
[2018-06-10] VITALS (26 sets, daily range): BP systolic 78–138; BP diastolic 50–90
[2018-06-10] MEDS: PROPOFOL DRIP (ICU) 100 ML IV SCH (02:21)
[2018-06-10] MEDS: hydrALAZINE (APESOLINE) 20 MG/ML VIAL IV SCH ×5 (02:23→20:29)
[2018-06-10] MEDS: RT-ALBUTEROL/IPRATROPIUM 3 ML (DUONEB) VIAL INH SCH ×4 (02:51→21:55)
[2018-06-10 03:44] LABS: BASOPHILS % (AUTO) 0 % (0-10); EOSINOPHILS # (AUTO) 0.2 10^3/uL (0.0-0.3); EOSINOPHILS % (AUTO) 2 % (0-10); HEMATOCRIT 31 % (40-54); HEMOGLOBIN 9.8 G/DL (13.3-17.7); LYMPHOCYTES # (AUTO) 0.8 X 10^3 (1.0-4.0); LYMPHOCYTES % (AUTO) 7 % (12-44); MEAN CORPUSCULAR HEMOGLOBIN 31 PG (25-34); MEAN CORPUSCULAR HGB CONC 31 G/DL (32-36); MEAN CORPUSCULAR VOLUME 100 FL (80-99); MEAN PLATELET VOLUME 9.7 FL (7.4-10.4); MONOCYTES # (AUTO) 0.9 X 10^3 (0.0-1.0); MONOCYTES % (AUTO) 8 % (0-12); NEUTROPHILS # (AUTO) 9.2 X 10^3 (1.8-7.8); NEUTROPHILS % (AUTO) 83 % (42-75); PLATELET COUNT 148 10^3/uL (130-400); RED CELL DISTRIBUTION WIDTH 14.9 % (10.0-14.5); WHITE BLOOD COUNT 11.1 10^3/uL (4.3-11.0)
[2018-06-10 03:52] LABS: BUN/CREATININE RATIO 16; CALCIUM 8.4 MG/DL (8.5-10.1); CARBON DIOXIDE 27 MMOL/L (21-32); CHLORIDE 105 MMOL/L (98-107); GFR ESTIMATED > 60; GLUCOSE 115 MG/DL (70-105); MAGNESIUM 1.9 MG/DL (1.8-2.4); PHOSPHORUS 2.9 MG/DL (2.3-4.7); POTASSIUM 4.5 MMOL/L (3.6-5.0); SODIUM 141 MMOL/L (135-145)
[2018-06-10] MEDS: LACTATED RINGERS 1,000 ML IV SCH ×3 (04:31→17:37)
[2018-06-10] MEDS: KETOROLAC 15 MG/ML VIAL IM/IV SCH (04:31)
[2018-06-10] MEDS ORDERED: DEXMEDETOMIDINE INJECTION 200 MCG in NS (IVPB) 50 ML IV SCH (05:15)
[2018-06-10] MEDS ORDERED: LACTATED RINGERS 1,000 ML IV SCH (05:15)
[2018-06-10 05:21] LABS: ABG BASE EXCESS 3.1 MMOL/L (-2.5-2.5); ABG OXYGEN SATURATION 80 % (94-100); ABG PCO2 55 MMHG (35-45); ABG PH 7.33 (7.37-7.43); ABG PO2 51 MMHG (79-93); ABG TCO2 30.2 MMOL/L (21.0-31.0)
[2018-06-10 05:22] LABS: ALLENS TEST YES-POS; INSPIRED O2 40%; PATIENT TEMP 98.3; VENTILATOR YES
--- NOTE | 2018-06-10 05:27 | Pulmonary Progress Note ---
Subjective Time Seen by a Provider: 08:00 Subjective/Events-last exam Pt is sedated on vent Sepsis Event Evaluation Height, Weight, BMI Height: 6'0.00" Weight: 205lbs. 0.0oz. 92.339260aj; 27.8 BMI Method:Stated Exam Exam Vital Signs Date Time Temp Pulse Resp B/P (MAP) Pulse Ox O2 Delivery O2 Flow Rate FiO2 06/10/18 05:00 86 19 109/69 (82) 96 Mechanical Ventilator 40.00 06/10/18 04:00 87 15 92/50 (64) 94 Mechanical Ventilator 40.00 06/10/18 03:17 76 15 93/56 (68) 90 Mechanical Ventilator 40.00 06/10/18 02:45 82 20 94 40 06/10/18 02:21 102/51 06/10/18 02:00 80 19 93/58 (70) 94 Mechanical Ventilator 40.00 06/10/18 01:00 94 06/10/18 01:00 94 19 91/58 (69) 92 Mechanical Ventilator 40.00 06/10/18 00:00 86 20 97/53 (68) 90 Mechanical Ventilator 40.00 06/09/18 23:16 85 23 92/70 (77) 90 Mechanical Ventilator 40.00 06/09/18 23:09 91 24 94 Mechanical Ventilator 40.00 06/09/18 23:07 40 06/09/18 23:00 81 25 114/57 (76) 93 Mechanical Ventilator 70.00 06/09/18 22:01 73 19 93 70 06/09/18 22:00 71 19 109/62 (78) 91 Mechanical Ventilator 70.00 06/09/18 21:00 69 11 107/60 (76) 90 Mechanical Ventilator 70.00 06/09/18 20:00 66 15 116/58 (77) 91 Mechanical Ventilator 70.00 06/09/18 19:14 64 17 100 70 06/09/18 19:00 61 06/09/18 19:00 61 13 123/61 (81) 100 Mechanical Ventilator 70.00 06/09/18 18:00 59 13 79/39 (52) 100 Mechanical Ventilator 70.00 06/09/18 17:55 89 14 96 70 06/09/18 17:45 66 11 111/49 (69) 100 Mechanical Ventilator 70.00 06/09/18 17:34 80 06/09/18 17:30 73 13 129/60 (83) 100 Mechanical Ventilator 70.00 06/09/18 17:22 71 18 125/56 (79) 100 Mechanical Ventilator 70.00 06/09/18 17:00 97.9 99 Ambu Bag 15 06/09/18 16:55 99 Ambu Bag 15 06/09/18 16:50 100 Ambu Bag 15 06/09/18 16:45 100 Ambu Bag 15 06/09/18 16:40 100 Ambu Bag 15 06/09/18 16:35 100 Ambu Bag 15 06/09/18 16:30 100 Ambu Bag 15 06/09/18 16:25 86 Ambu Bag 15 06/09/18 16:20 82 Ambu Bag 15 06/09/18 16:15 12 89 OxyMask 15 06/09/18 16:10 12 90 OxyMask 15 06/09/18 16:00 14 95 OxyMask 15 06/09/18 15:56 98.6 12 98 OxyMask 15 06/09/18 12:00 98.6 69 20 147/70 (95) 90 Nasal Cannula 3.00 06/09/18 10:00 98.6 71 20 160/106 (124) 99 Nasal Cannula 3.00 06/09/18 08:30 97.9 70 20 114/72 97 Nasal Cannula 3.00 3.00 06/09/18 08:30 97 Nasal Cannula 3.00 06/09/18 07:41 97.9 70 20 114/72 (86) 97 Nasal Cannula 3.00 I & O 06/10/18 07:00 Intake Total 2050 ml Output Total 895 ml Balance 1155 ml Height & Weight Height: 6'0.00" Weight: 205lbs. 0.0oz. 92.732570vm; 27.8 BMI Method:Stated General Appearance: Mild Distress HEENT: Normal ENT Inspection Neck: Normal Inspection Respiratory: Chest Non Tender, Lungs Clear, Normal Breath Sounds Cardiovascular: Regular Rate, Rhythm Capillary Refill: Less Than 3 Seconds Peripheral Pulses: 2+ Dorsalis Pedis (R), 2+ Left Dors-Pedis (L), 2+ Radial Pulses (R), 2+ Radial Pulses (L) Gastrointestinal: non tender, soft Extremity: Normal Capillary Refill, Normal Inspection, Normal Range of Motion Neurologic/Psychiatric: Alert, Oriented x3, No Motor/Sensory Deficits, Normal Mood/Affect Skin: Normal Color, Warm/Dry Lymphatic: No Adenopathy Results Lab Laboratory Tests 06/09/18 04:14 06/10/18 03:10 Assessment/Plan Assessment/Plan Acute respiratory failure s/p surgery -Plan is for extubation around 8am when family is present -Decrease Fentanyl and Propofol -Add precedex -Pt is no Code blue, no chest compressions, no shocking Left femoral neck fracture s/p surgical repair -Pain control Severe Alzheimers/Dementia Severe COPD -Oxygen -Will start SVNs Anemia -Monitor Hypotension - secondary to volume depletion -Give 1 liter LR bolus LUIS KRISHNAN DO Jun 10, 2018 05:27
[2018-06-10] MEDS ORDERED: LACTATED RINGERS 1,000 ML IV ONE ×2 (06:00→15:00)
[2018-06-10] MEDS: ceFAZolin 2 GM IV Premixed 50 ML IV SCH ×2 (06:47→14:35)
[2018-06-10] MEDS: MAGNESIUM 1 GM/100 ML IVPB 100 ML IV SCH ×2 (06:52→06:53)
[2018-06-10] MEDS: POTASSIUM CL 10MEQ/50ML IVPB 50 ML IV SCH ×2 (06:52)
[2018-06-10] MEDS: inSUlin ASPART (NovoLOG) 1 UNIT/0.01 ML (CHARGE PER UNIT) SC SCH ×4 (06:53→18:04)
[2018-06-10] MEDS: KCL 20 MEQ TAB (K-DUR) PO SCH ×2 (06:53)
--- NOTE | 2018-06-10 07:26 | Diagnostic Imaging Report ---
EXAM: CHEST 1 VIEW, AP/PA ONLY INDICATION: Dyspnea. COMPARISON: Chest radiograph 06/07/2018. FINDINGS: Normal heart size and central pulmonary vascularity. Mild patchy interstitial opacities have improved since prior exam. No pleural effusion or pneumothorax. No acute osseous findings. ETT tip at the level of the clavicles. IMPRESSION: 1. ETT in the expected position. 2. Improving scattered patchy interstitial opacities. Dictated by: Dictated on workstation # [id number]
--- NOTE | 2018-06-10 07:32 | NUR ---
this rn wasted 181ml of Fentanyl drip with Luanne Kern RN
[2018-06-10] MEDS ORDERED: DEXMEDETOMIDINE 1,000 MCG/NS 250 ML IV SCH ×2 (08:00)
[2018-06-10] MEDS: ENOXAPARIN 40 MG/0.4 ML (LOVENOX) SYR SC SCH (08:05)
[2018-06-10] MEDS ORDERED: fentaNYL INJECTION 100 MCG/2 ML AMP IV PRN (08:15)
[2018-06-10] MEDS ORDERED: SUCCINYLCHOLINE INJ 100 MG/5 ML SYR ONE (08:40)
--- NOTE | 2018-06-10 08:40 | NUR ---
patient extubated at this time by RT chayito per orders of Dr. Crabtree. Patient placed on 10L oxy max. Patient awake et speaking with family.
--- NOTE | 2018-06-10 10:04 | NUR ---
PALLIATIVE CARE RN received Hospice Consult for education. This RN went to the patient room where I found that he had been extubated, now on OxyMask at 10 L, RR 16 and regular. He had respiratory arrest post hip surgery. Met with the family in the waiting room but was not present so will reattempt to visit later in the day.
--- NOTE | 2018-06-10 10:24 | Physical Therapy Evaluation ---
PT Evaluation-General Medical Diagnosis Admission Date Jun 09, 2018 at 03:18 Medical Diagnosis: left hip fx Onset Date: Jun 09, 2018 Therapy Diagnosis Therapy Diagnosis: weakness Height/Weight Height (Feet): 6 Height (Inches): 0.00 Weight (Pounds): 205 Weight (Ounces): 0.0 Precautions Precautions/Isolations: Fall Prevention, Standard Precautions, Pressure Ulcer Weight Bear Status Right Lower Extremity: Right Full Weight Bearing Left Lower Extremity: Left Weight Bearing/Tolerated Referral Physician: Joel Reason for Referral: Evaluation/Treatment Medical History Pertinent Medical History: COPD, GERD, HTN, OA Additional Medical History dementia COPD Current History [facility] that resulted in a left hip fx; post brittany arthroplasty. Reviewed History: Yes Social History Home: [facility] Prior Level of Function Therapy Code Descriptions/Definitions Functional [place] Measure: 0=Not Assessed/NA 4=Minimal Assistance 1=Total Assistance 5=Supervision or Setup 2=Maximal Assistance 6=Modified [place] 3=Moderate Assistance 7=Complete [place] Therapy Quality Codes: 6 Independent with activity with or without an assistive device 5 Patient requires set up or clean up by helper. Patient completes activity by themselves 4 Supervision or touching assist (CGA). [place] provide cues , steadying assist 3 The helper provides less than half the effort to complete the activity 2 The helper provides more than half the effort to complete the activity 1 Dependent. The helper does all the effort to complete an activity 7 Patient refused to complete or attempt activity 9 The patient did not perform the activity before the current illness or injury 88 Not attempted due to Medical conditions or safety concerns Functional Abilities and Goals: Independent: Patient completed the activities by him/herself, with or without an assistive device, with no assistance from a helper. Needed Some Help: Patient needed partial assistance from another person to complete activities. Dependent: A helper completed the activities for the patient. Unknown: Not Applicable: Pt is a poor historian. Unable to relate any details. PT Evaluation-Current Subjective Smiles as this therapist introduces self. Pt indicates discomfort during transitional movements. Pain Numeric Pain Scale: 6 Location: Left Location Body Site: Hip Comment: FLACC Objective Patient Orientation: Person, Confused Problem Solving: Poor Attachments: SCD's, Oxygen, IV ROM/Strength ROM Lower Extremities PROM WFL Strength Lower Extremities unable to assess Integumentary/Posture Integumentary refer to nursing note.s Bowel Incontinence: Yes Bladder Incontinence: Hewitt Cath Posture symmetrical in supported sitting. Neuromuscular (Tone, Coordination, Reflexes) appears intact and functional Sensory Hearing: Functional Transfers Therapy Code Descriptions/Definitions Functional [place] Measure: 0=Not Assessed/NA 4=Minimal Assistance 1=Total Assistance 5=Supervision or Setup 2=Maximal Assistance 6=Modified [place] 3=Moderate Assistance 7=Complete [place] Transfers (B, C, W/C) (FIM): 1 Scootin Rollin Supine to/from Sit: 1 Sit to/from Stand: 0 (did not test) Pt requires assist of 2 for all bed mobility and to transfer to sit EOB. Pt requires dep assist to maintain sitting EOB, tends to fall backwards and to the left. Balance Sitting Static: Poor Sitting Dynamic: Poor Treatment Pt sat EOB with dep assist. Cues for deep breathing and for postural control; limited ability to follow cues. Rolling in bed to perform linen change. Assessment/Needs Pt presents post fall with left hip fracture that has been repaired. He is currently dependent with all mobiltiy and ineffective in participation with skilled intervention at this time. However, he will benefit from skilled intervention to address functional mobility and transfers to promote interaction in his environment and to assist with his transfers and care. Rehab Potential: Guarded PT Jail Goals Jail Goals PT International Marketing Manager Goals Time Frame: Jun 17, 2018 Transfers (B,C,W/C) (FIM): 3 Gait (FIM): 2 Gait distance (FIM): 1=up to 49 ft Gait Assistive Device: FWW PT Plan Problem List Problem List: Activity Tolerance, Functional Strength, Safety, Balance, Gait, Transfer, Bed Mobility Treatment/Plan Treatment Plan: Continue Plan of Care Treatment Plan: Bed Mobility, Education, Functional Activity [place], Functional Strength, Gait, Safety, Therapeutic Exercise, Transfers Treatment Duration: Jun 17, 2018 Frequency: 6 times per week (will increase as he is able to participate) Estimated Hrs Per Day: .5 hour per day Patient and/or Family Agrees t: Yes Discharge Recommendations Therapy D/C Recommendations: [facility] (TCU/[facility]) (PT) Time/GCodes Time In: 950 Time Out: 1015 (co treat with OT) Total Billed Treatment Time: 25 Total Billed Treatment visit EVM 15 FA 10 MARTÍNEZ RICHMOND PT Jun 10, 2018 10:24
--- NOTE | 2018-06-10 11:16 | Occupational Therapy Eval ---
OT Evaluation-General/PLF Medical Diagnosis Admission Date Jun 09, 2018 at 03:18 Medical Diagnosis: left hip fx Onset Date: Jun 09, 2018 Therapy Diagnosis Therapy Diagnosis: impaired ADLs and mobility, weakness Height/Weight Height (Feet): 6 Height (Inches): 0.00 Weight (Pounds): 205 Weight (Ounces): 0.0 Precautions Precautions/Isolations: Fall Prevention, Standard Precautions, Pressure Ulcer Safety Interventions: Bed Exit Alarm Weight Bear Status Weight Bearing Restriction: Weight Bearing/Tolerated Location Restriction: ELDER FEET Referral Physician: Joel Referral Reason: Activity Tolerance, Self Care, Evaluation/Treatment, Strengthening/ROM Medical History Pertinent Medical History: COPD, GERD, HTN, OA Additional Medical History dementia Current History Unwitnessed fall at assisted that resulted in a left hip fx; post brittany arthroplasty. Reviewed History: Yes Social History Home: [facility] pt poor historian and unable to stated PLOF ADL-Prior Level of Function Therapy Code Descriptions/Definitions Functional [place] Measure: 0=Not Assessed/NA 4=Minimal Assistance 1=Total Assistance 5=Supervision or Setup 2=Maximal Assistance 6=Modified [place] 3=Moderate Assistance 7=Complete [place] Therapy Quality Codes: 6 Independent with activity with or without an assistive device 5 Patient requires set up or clean up by helper. Patient completes activity by themselves 4 Supervision or touching assist (CGA). [place] provide cues , steadying assist 3 The helper provides less than half the effort to complete the activity 2 The helper provides more than half the effort to complete the activity 1 Dependent. The helper does all the effort to complete an activity 7 Patient refused to complete or attempt activity 9 The patient did not perform the activity before the current illness or injury 88 Not attempted due to Medical conditions or safety concerns Functional Abilities and Goals: Independent: Patient completed the activities by him/herself, with or without an assistive device, with no assistance from a helper. Needed Some Help: Patient needed partial assistance from another person to complete activities. Dependent: A helper completed the activities for the patient. Unknown: Not Applicable: PLOF unknown. pt poor historian. [place] [facility] [place] Current Status Subjective pt lying in bed upon OT arrival in no appeant distress. pt agreed to OT evaluation/ treatment session. chart review completed. [facility] [place] pot may participate in OT Session Pain Comment: FLACC scale 6 Mental Status/Objective Patient Orientation: Person (pt only oriented to self) Attachments: Hewitt Catheter, IV, Oxygen, SCD's Current Upper Extremity ROM pt unable to follow commands secondary to decrease cognition. PROM WFL Upper Extremity Coordination pt unable to follow commands secondary to decrease cognition. Upper Extremity Sensation NT secondary to pt unable to follow commands secondary to decrease cognition. Upper Extremity Strength NT secondary to pt unable to follow commands secondary to decrease cognition. ADL-Treatment Therapy Code Descriptions/Definitions Functional [place] Measure: 0=Not Assessed/NA 4=Minimal Assistance 1=Total Assistance 5=Supervision or Setup 2=Maximal Assistance 6=Modified [place] 3=Moderate Assistance 7=Complete [place] Therapy Quality Codes: 6 Independent with activity with or without an assistive device 5 Patient requires set up or clean up by helper. Patient completes activity by themselves 4 Supervision or touching assist (CGA). [place] provide cues , steadying assist 3 The helper provides less than half the effort to complete the activity 2 The helper provides more than half the effort to complete the activity 1 Dependent. The helper does all the effort to complete an activity 7 Patient refused to complete or attempt activity 9 The patient did not perform the activity before the current illness or injury 88 Not attempted due to Medical conditions or safety concerns pt DEP for all ADLs secondary to decrease ability to follow one step commands. OT/ PT co treatment performed secondary to it being clinically appropriate treatment that could not be performed by rehabilitation services coordinator due to complexity of the skills required by both disciplines involved. . bed mobility performing activity involving OT and PT. patent completes supine to sit with MAX VC from OT And PT to get to the EOB with max assist of 2 person. noted pt with poor trunk stability and decrease static sitting balance while seated EOB. physical therapy worked on static sitting balance while OT worked in engaging pt in following one step commands. pt required total assist X2 to perform sit to supine. noted pt incontinent with open wound on coccyx. noted notified. pt left in NSG care Education OT Patient Education: Correct positioning, Energy conservation, Safety issues, Transfer techniques Teaching Recipient: Patient Teaching Methods: Demonstration, Discussion Response to Teaching: Unable to Return Demonstration, Reinforcement Needed OT Short Term Goals Short Term Goals Eating(FIM): 2 Grooming(FIM): 2 Bathing(FIM): 2 Transfers (B,C,W/C) (FIM): 2 1=Demonstrate adherence to instructed precautions during ADL tasks. 2=Patient will verbalize/demonstrate understanding of assistive devices/ modifications for ADL. 3=Patient will improve strength/tolerance for activity to enable patient to perform ADL's. OT Lens Cleaner Goals Senior Living Goals Eating (FIM): 4 Grooming(FIM): 4 Bathing(FIM): 4 Transfers (B,C,W/C) (FIM): 4 1=Demonstrate adherence to instructed precautions during ADL tasks. 2=Patient will verbalize/demonstrate understanding of assistive devices/ modifications for ADL. 3=Patient will improve strength/tolerance for activity to enable patient to perform ADL's. OT Education/Plan Problem List/Assessment Assessment: Decreased Activ Tolerance, Decreased Safety Aware, Decreased UE Strength, Dependent Transfers, Impaired Bed Mobility, Impaired Cognition, Impaired Coordination, Impaired Funct Balance, Impaired I ADL's, Impaired Self- Care Skills, Restricted Funct UE ROM pt presents with functional limitations affecting areas of ADLS and functional mobility. pt would benefit from OT services to increase independence with ADLS and functional transfers. Discharge Recommendations Plan/Recommendations: Continue POC Therapy D/C Recommendations: 24 hr Supervision, [facility] (TCU/NH) Treatment Plan/Plan of Care Treatment,Training & Education: Yes Patient would benefit from OT for education, treatment and training to promote independence in ADL's, mobility, safety and/or upper extremity function for ADL' s. Plan of Care: ADL Retraining, Caregiver Training, Functional Mobility, Group Exercise/Act as Ind, UE Funct Exercise/Act Treatment Duration: June 24, 2018 Frequency: 5 times per week Estimated Hrs Per Day: .25 hour per day Agreement: Yes Rehab Potential: Guarded Time/GCodes Start Time: 09:45 Stop Time: 10:10 Billed Treatment Time EVM 15 minutes FA 10 minutes, 1 unit ENRICO HORN OT Jun 10, 2018 11:16
--- NOTE | 2018-06-10 13:01 | OPERATIVE REPORT ---
DATE OF SERVICE: 06/09/2018 PREPROCEDURE DIAGNOSIS: Completely displaced subcapital fracture of left femoral neck, Garden type 4. POSTPROCEDURE DIAGNOSIS: Completely displaced subcapital fracture of left femoral neck, Garden type 4. PROCEDURE: Uncemented bipolar hemiarthroplasty, left hip. IMPLANTS USED: 1. The DePuy Synthes Tri-Lock uncemented femoral stem size #7 with standard offset. 2. The DePuy Synthes bipolar self-centering head size 55 mm outer diameter with a 28 mm inner diameter. 3. The DePuy Synthes ARTICUL/BRANDYN femoral head size 28 mm in diameter with a +5 offset. ATTENDING SURGEON: Dr. Grecia Maldonado. OB/GYN PHYSICIAN: Yon Humphreys PA-C; Mr. Humphreys's assistance was required secondary to the complexity of the case, to hold necessary retractors protecting vital neurovascular structures and to increase the efficiency and efficacy of the case; this case would not have been possible without the presence of an bricklayer's assistant. ANESTHESIA: General endotracheal. ESTIMATED BLOOD LOSS: 200 mL. COMPLICATIONS: None. SPECIMENS: None. DRAINS: None. BRIEF HISTORY AND INDICATIONS: The patient is a very pleasant 83-year-old male with a history of advanced dementia who sustained an unwitnessed mechanical ground level fall. The patient was found down by a nursing facility aide. He was complaining of severe left hip pain and an inability to bear weight or ambulate on his left lower extremity. He was transferred to the [facility] Emergency Department for evaluation. Upon presentation, plain radiographs of the left hip and pelvis demonstrated a completely displaced fracture of the left femoral neck. Orthopedic service was consulted for definitive management of his injury. Speaking with the family as well as the patient, there was a denial of head trauma or loss of consciousness, also denial of additional associated musculoskeletal injuries. On exam, the left lower extremity was shortened and externally rotated, had grossly intact motor and sensory function, the skin was intact. There were no open wounds and the foot was well perfused. I reviewed and discussed the patient's injury in detail with the patient as well as his family including the natural history, prognosis and treatment options. I explained that this was a very unstable injury and to facilitate mobilization out of bed, to avoid prolonged recumbency and its associated complications and for palliative pain control surgery was indicated. Surgical plan was for bipolar hemiarthroplasty of the left hip. I discussed this plan with the patient and his family in detail including the risks, benefits, potential complications, expected outcomes, indications and alternatives. Those risks that were discussed included significant bleeding, infection, failure and/or dislocation of the prosthesis, damage to surrounding neurovascular and soft tissue structures, potential serious reactions to anesthesia including , and potential need for secondary surgical procedures. The patient's family acting as his POA gave informed written consent to proceed as planned after all of their questions were answered to their satisfaction. PROCEDURE NOTE: After correctly identifying the patient in the preoperative holding area and after his left hip was appropriately marked, he was transferred to the operating room. Once in the operating room, he had successful induction of general endotracheal anesthesia. Then, he was transferred to a standard OR table and placed in the lateral recumbent position with left hip up right hip down. Soft axillary roll was placed on the right-sided chest wall. The patient was maintained in the lateral recumbent position with well-padded hip positioners. The left lower extremity was then prepped and draped in the routine sterile fashion. Prior to beginning the case, we completed an operating room timeout with all parties involved in the case and agreement and verified appropriate infusion of prophylactic antibiotics. Using a 10 blade scalpel, I made an incision centered over the greater trochanter of about 7 cm in length incising the skin and subcutaneous tissue. Bovie cautery was then used to dissect through the IT band and fascia of the gluteus yuli exposing the gluteus medius. We then proceeded with the anterolateral Hardinge approach to the hip joint. The anterior third of the gluteus medius insertion at the greater trochanter was split in line of its fibers to gain access to the gluteus minimus fascia beneath. Bovie cautery was used to dissect through the gluteus minimus fascia and through the capsule and was carried distally to release the attachment of the gluteus medius tendon along with the capsule and a tendinocapsular flap. This dissection was carried out anterolaterally until the subcapital fracture of the femoral neck was exposed, which was then delivered out of the wound. A standard bone saw was then used to make a femoral neck osteotomy approximately 1 cm proximal to the lesser trochanter. The femoral head was then removed from the acetabulum and measured to be about 55 mm and so we decided to use that size bipolar head for the final prosthesis. We then began preparing the femur for the femoral stem. This was first accomplished by using the canal finder and lateralizer followed by using the broaching system until we were getting a good fit and fill with a size 7 broach. As such, we decided to go with the size 7 uncemented stem for the final implant. That final implant was inserted into the proximal femur into the appropriate position with light taps of the mallet. Adequate stability of the stem was confirmed prior to proceeding with the remainder of the case. We then trialled with the +5 offset trial, which gave us good stability and recreated the leg lengths quite well. The final bipolar head was inserted on to the trunnion of the femoral stem and then the hip was reduced without complications. Final range of motion testing confirmed adequate stability of the prosthesis and the hip joint and the leg lengths had been recreated quite well. The wound was then irrigated with copious amounts of sterile saline. We then began our closure. The anterolateral capsule was repaired with #1 Ethibond and then the gluteus medius insertion was then repaired back down to the greater trochanter with #1 Ethibond through bone tunnels created in the greater trochanter. The fascia of the IT band and gluteus yuli was then repaired with a #1 PDS stitch. Subcutaneous tissue was repaired with 2-0 Vicryl and the skin was repaired with a running 4-0 Monocryl subcuticular stitch and Steri-Strips. The patient has sterile dressing applied and then was awakened and extubated in the operating room without incident. He was then transferred to the PACU in stable condition. He had tolerated the procedure quite well without complications. All counts were correct at the end of the case. Job ID: [id number] DocumentID: [id number] Dictated Date: 06/10/2018 08:22:02 Heel Sprayer Date: 06/10/2018 13:01:33 Dictated By: GRECIA MENENDEZ
--- NOTE | 2018-06-10 14:10 | Progress Note-Hospitalist ---
Progress Note Progress Notes/Assess & Plan Date Seen 06/10/18 Time Seen by Provider: 14:08 Assessment & Plan The patient survived his hip repair and was overnighted on the ventilator. He is sleeping deeply at the time of my visit. His vital signs are stable and very satisfactory. Physical exam: Lungs are clear to auscultation. CV is irregular and consistent with atrial fibrillation. Impression: Day 1 postop hip repair. 2.severe dementia. Plan: Advance activities as he tolerates. NICKO WEINSTEIN MD Jun 10, 2018 14:10
--- NOTE | 2018-06-10 14:30 | Anesthesia-General Post-Op ---
General Patient Condition Mental Status/LOC: Same as Preop Cardiovascular: Satisfactory Nausea/Vomiting: Absent Respiratory: Satisfactory Pain: Controlled Complications: Absent Post Op Complications Complications None Follow Up Care/Instructions Patient Instructions None needed. Anesthesia/Patient Condition Patient Condition Patient is doing well, no complaints, stable vital signs, no apparent adverse anesthesia problems. He is sitting up in bed and breathing well after being reintubated post-op yesterday. We will be available if needed. JS HERNANDEZ DO Jun 10, 2018 14:30
--- NOTE | 2018-06-10 14:48 | NUR ---
notified dr. tiwari regarding patients urine output. new order received for 1 l bolus given over 2 hours.
[2018-06-10] MEDS: HYDROcodone/APAP 5 MG/325 MG (LORTAB) TAB PO PRN (18:05)
--- NOTE | 2018-06-10 19:12 | Progress Note-Standard ---
Standard Progress Note Progress Notes/Assess & Plan Date Seen by a Provider: Jun 10, 2018 Time Seen by a Provider: 08:15 Progress/Assessment & Plan S/P Hemiarthroplasty Left hip, POD #1 Mobilize with PT/OT when extubated. WBAT LLE Pain control regimen Bowel regimen Lovenox/SCDs for VTE prophylaxis. D/C planning: back to SNF when bed available and cleared by medicine. GRECIA JEAN DO Jun 10, 2018 19:11
[2018-06-11] VITALS (13 sets, daily range): BP systolic 107–142; BP diastolic 53–79
[2018-06-11] MEDS: inSUlin ASPART (NovoLOG) 1 UNIT/0.01 ML (CHARGE PER UNIT) SC SCH ×4 (00:34→18:47)
[2018-06-11] MEDS: LACTATED RINGERS 1,000 ML IV SCH ×2 (01:15→01:57)
[2018-06-11] MEDS: hydrALAZINE (APESOLINE) 20 MG/ML VIAL IV SCH (01:28)
[2018-06-11] MEDS: KCL 20 MEQ TAB (K-DUR) PO SCH ×2 (01:58→01:59)
[2018-06-11] MEDS: POTASSIUM CL 10MEQ/50ML IVPB 50 ML IV SCH ×2 (01:58)
[2018-06-11] MEDS: MAGNESIUM 1 GM/100 ML IVPB 100 ML IV SCH ×4 (01:58→11:35)
[2018-06-11] MEDS: RT-ALBUTEROL/IPRATROPIUM 3 ML (DUONEB) VIAL INH SCH ×4 (02:03→19:32)
[2018-06-11 04:12] LABS: BASOPHILS % (AUTO) 0 % (0-10); EOSINOPHILS # (AUTO) 0.3 10^3/uL (0.0-0.3); EOSINOPHILS % (AUTO) 3 % (0-10); HEMATOCRIT 30 % (40-54); HEMOGLOBIN 9.2 G/DL (13.3-17.7); LYMPHOCYTES % (AUTO) 9 % (12-44); MEAN CORPUSCULAR HEMOGLOBIN 31 PG (25-34); MEAN CORPUSCULAR HGB CONC 31 G/DL (32-36); MEAN CORPUSCULAR VOLUME 100 FL (80-99); MEAN PLATELET VOLUME 9.9 FL (7.4-10.4); MONOCYTES % (AUTO) 9 % (0-12); NEUTROPHILS # (AUTO) 8.4 X 10^3 (1.8-7.8); NEUTROPHILS % (AUTO) 79 % (42-75); PLATELET COUNT 117 10^3/uL (130-400); RED CELL DISTRIBUTION WIDTH 15.1 % (10.0-14.5); WHITE BLOOD COUNT 10.7 10^3/uL (4.3-11.0)
[2018-06-11 04:32] LABS: BUN/CREATININE RATIO 18; CALCIUM 8.2 MG/DL (8.5-10.1); CARBON DIOXIDE 25 MMOL/L (21-32); CHLORIDE 105 MMOL/L (98-107); CREATININE SERUM 0.94 MG/DL (0.60-1.30); GFR ESTIMATED > 60; GLUCOSE 91 MG/DL (70-105); MAGNESIUM 1.7 MG/DL (1.8-2.4); PHOSPHORUS 2.5 MG/DL (2.3-4.7); POTASSIUM 4.3 MMOL/L (3.6-5.0); SODIUM 139 MMOL/L (135-145)
--- NOTE | 2018-06-11 07:03 | Pulmonary Progress Note ---
Subjective Time Seen by a Provider: 07:08 Subjective/Events-last exam Pt is doing well off ventilator. He was hypotensive during the night. Sepsis Event Evaluation Height, Weight, BMI Height: 6'0.00" Weight: 205lbs. 0.0oz. 92.591072wu; 27.8 BMI Method:Stated Exam Exam Vital Signs Date Time Temp Pulse Resp B/P (MAP) Pulse Ox O2 Delivery O2 Flow Rate FiO2 06/11/18 06:00 73 30 132/72 (92) 100 Nasal Cannula 3.00 06/11/18 05:00 71 9 125/58 (80) 98 Nasal Cannula 3.00 06/11/18 04:00 82 29 107/71 (83) 96 Nasal Cannula 3.00 06/11/18 04:00 96 High Flow N/C 3.00 06/11/18 04:00 98.8 06/11/18 03:00 90 23 134/61 (85) 98 Nasal Cannula 3.00 06/11/18 02:07 96 High Flow N/C 3.00 06/11/18 02:00 68 10 129/53 (78) 94 Nasal Cannula 3.00 06/11/18 01:00 70 18 120/53 (75) 99 Nasal Cannula 3.00 06/11/18 01:00 70 06/11/18 00:00 98.8 06/11/18 00:00 95 High Flow N/C 3.00 06/10/18 23:00 74 16 130/56 (80) 91 Nasal Cannula 3.00 06/10/18 22:00 71 15 122/51 (74) 100 Nasal Cannula 3.00 06/10/18 21:54 100 High Flow N/C 5.00 06/10/18 21:00 62 13 121/54 (76) 100 Nasal Cannula 5.00 06/10/18 20:06 99.1 06/10/18 20:00 93 High Flow N/C 5.00 06/10/18 20:00 75 9 99/53 (68) 93 Nasal Cannula 5.00 06/10/18 19:00 85 06/10/18 19:00 85 17 123/62 (82) 97 Nasal Cannula 5.00 06/10/18 18:00 75 4 101/61 (74) Nasal Cannula 5.00 06/10/18 16:00 100 Nasal Cannula 5.00 06/10/18 16:00 75 19 124/60 (81) 90 Nasal Cannula 5.00 06/10/18 15:40 98.6 06/10/18 15:00 75 19 123/62 (82) 97 Nasal Cannula 5.00 06/10/18 14:03 96 High Flow N/C 5.00 06/10/18 14:00 64 15 128/74 (92) 96 Nasal Cannula 5.00 06/10/18 13:00 64 16 133/90 (104) 94 Nasal Cannula 5.00 06/10/18 12:22 62 06/10/18 12:00 63 15 121/80 (94) 96 Nasal Cannula 5.00 06/10/18 12:00 98 OxyMask 5.00 06/10/18 11:41 98.0 06/10/18 11:00 70 16 138/75 (96) 97 Nasal Cannula 5.00 06/10/18 10:00 80 18 78/69 (72) Nasal Cannula 5.00 06/10/18 09:28 Nasal Cannula 5.00 06/10/18 09:00 64 15 123/82 (96) 97 High Flow N/C 10.00 06/10/18 08:43 High Flow N/C 10.00 06/10/18 08:00 53 19 136/73 (94) 98 Mechanical Ventilator 40.00 06/10/18 07:24 98 Mechanical Ventilator 40.00 06/10/18 07:23 99.1 72 16 105/63 (77) 98 Mechanical Ventilator 40.00 06/10/18 07:08 63 06/10/18 07:00 65 11 111/61 (78) 97 Mechanical Ventilator 40.00 I & O 06/11/18 07:00 Intake Total 3622 ml Output Total 725 ml Balance 2897 ml Height & Weight Height: 6'0.00" Weight: 205lbs. 0.0oz. 92.419367yv; 27.8 BMI Method:Stated General Appearance: No Apparent Distress HEENT: Normal ENT Inspection Neck: Normal Inspection Respiratory: Chest Non Tender, Lungs Clear, Normal Breath Sounds Cardiovascular: Regular Rate, Rhythm Capillary Refill: Less Than 3 Seconds Peripheral Pulses: 2+ Dorsalis Pedis (R), 2+ Left Dors-Pedis (L), 2+ Radial Pulses (R), 2+ Radial Pulses (L) Gastrointestinal: non tender, soft Extremity: Normal Capillary Refill, Normal Inspection, Normal Range of Motion Neurologic/Psychiatric: Alert, Oriented x3, No Motor/Sensory Deficits, Normal Mood/Affect Skin: Normal Color, Warm/Dry Lymphatic: No Adenopathy Results Lab Laboratory Tests 06/10/18 03:10 06/11/18 04:00 Assessment/Plan Assessment/Plan Acute respiratory failure s/p surgery -Pt is doing well off ventilator -Pt is no Code blue, no chest compressions, no shocking --PT did not qualify for hospice prior to this admission. He was evaluated. Left femoral neck fracture s/p surgical repair -Pain control Severe Alzheimers/Dementia Severe COPD - He does not usually require oxygen during the day just at night. -Oxygen -Will start SVNs -Will need ambulatory desat test prior to discharge Anemia -Monitor Debility, severe osteoarthritis in hips and knees bilaterally -Will consult rehab for evaluation for inpatient rehab. LUIS KRISHNAN DO Jun 11, 2018 07:03
--- NOTE | 2018-06-11 08:49 | Diagnostic Imaging Report ---
INDICATION: Shortness of breath. EXAMINATION: Portable chest at 2:57 AM. FINDINGS: The heart size and pulmonary vascularity are normal. The lungs are clear. There are no effusions or pneumothoraces. IMPRESSION: Negative chest. Dictated by: Dictated on workstation # [id number]
[2018-06-11] MEDS: meTOprolol SUCCINATE 100 MG (TOPROL XL) TAB PO SCH (09:58)
[2018-06-11] MEDS: ENOXAPARIN 40 MG/0.4 ML (LOVENOX) SYR SC SCH (09:58)
[2018-06-11] MEDS: NAPROXEN 250 MG (NAPROSYN) TABLET PO SCH ×2 (09:59→11:35)
[2018-06-11] MEDS: amLODIPine 5 MG (NORVASC) TAB PO SCH (09:59)
[2018-06-11] MEDS: ASPIRIN 81 MG CHEW (CHILDREN'S ASA) PO SCH (09:59)
--- NOTE | 2018-06-11 10:49 | Progress Note-Hospitalist ---
Subjective HPI/CC On Admission Date Seen by Provider: Jun 11, 2018 Time Seen by Provider: 10:30 The patient is an 83-year-old white male fpc patient who apparently fell shortly after midnight and was not observed. He reported pain and was unwilling to bear weight and was sent to the emergency room where he was found to have a hip fracture. His only other health problem besides the dementia is that of mild to moderate COPD. He is related to Dr. Crabtree who spoke to me earlier today and related that the family was concerned about performing in the operative procedure on him. He told them and I would second that that this really is not about prolonging life but rather providing pain relief to the patient and comfort to those who have to care for him after suffering this injury. Subjective/Events-last exam Pt confused and really not wanting any food fed to him In stage dementia noted COPD noted Oxygen maintained Home medication restarted Likely is a hospice candidate Not an inpatient rehab candidate Review of Systems General: Fatigue Musculoskeletal: leg pain Neurological: Confusion Objective Exam Vital Signs Vital Signs Date Time Temp Pulse Resp B/P (MAP) Pulse Ox O2 Delivery O2 Flow Rate FiO2 06/11/18 14:26 87 Nasal Cannula 3.00 06/11/18 10:30 99.1 75 20 112/65 (81) 06/10/18 05:50 40 Capillary Refill : Less Than 3 SecondsLess Than 3 Seconds General Appearance: No Apparent Distress, WD/WN, Chronically ill HEENT: PERRL/EOMI, Normal ENT Inspection Neck: Normal Inspection Respiratory: Chest Non Tender, Lungs Clear, Normal Breath Sounds Cardiovascular: Regular Rate, Rhythm, No Edema Gastrointestinal: Normal Bowel Sounds Back: Normal Inspection Extremity: Normal Capillary Refill, Normal Inspection, Normal Range of Motion ( decreased ROM leg left) Neurologic/Psychiatric: Alert, No Motor/Sensory Deficits, Normal Mood/Affect, Disoriented Skin: Normal Color, Warm/Dry Lymphatic: No Adenopathy Results/Procedures Lab Laboratory Tests 06/11/18 04:00 Patient resulted labs reviewed. Assessment/Plan Assessment and Plan Assess & Plan/Chief Complaint Assessment: s/p left hip fracture uncomplicated repair POD # 1 Dementia COPD Falls Hospice candidate Plan: Transfer to [facility] Pain control Not an IRF candidate Critical Care Critically Ill Patient Diagnosis/Problems Diagnosis/Problems (1) Hip fracture, left Status: Acute Qualifiers: Encounter type: initial encounter Fracture type: closed Qualified Codes: S72.002A - Fracture of unspecified part of neck of left femur, initial encounter for closed fracture (2) Dementia Status: Chronic Qualifiers: Dementia type: Alzheimer's disease Alzheimer's disease onset: unspecified onset Dementia behavioral disturbance: without behavioral disturbance Qualified Codes: G30.9 - Alzheimer's disease, unspecified; F02.80 - Dementia in other diseases classified elsewhere without behavioral disturbance (3) COPD (chronic obstructive pulmonary disease) Status: Chronic Qualifiers: COPD type: unspecified COPD Qualified Codes: J44.9 - Chronic obstructive pulmonary disease, unspecified (4) Hypertension Status: Chronic Qualifiers: Hypertension type: essential hypertension Qualified Codes: I10 - Essential (primary) hypertension (5) CAD (coronary artery disease) Status: Chronic Qualifiers: Coronary Disease-Associated Artery/Lesion type: [place] artery [place] vs. transplanted heart: [place] heart Associated angina: without angina Qualified Codes: I25.10 - Atherosclerotic heart disease of [place] coronary artery without angina pectoris Clinical Quality Measures DVT/VTE Risk/Contraindication: Risk Factor Score Per Nursin RFS Level Per Nursing on Admit: 4+=Very High ERNESTO AN DO Jun 11, 2018 10:49
--- NOTE | 2018-06-11 11:00 | NUR ---
PATIENT BROUGHT TO ROOM 418 VIA HOSPITAL BED FROM ICU. PATIENT AND FAMILY ORIENTED TO ROOM AND CALL LIGHT. PHYSICAL THERAPY HERE AT BEDSIDE TO DO EVALUATION.
--- NOTE | 2018-06-11 11:07 | Physical Therapy Daily Note ---
PT Daily Note-Current Subjective Patient just moved to 418. Patient in bed pre tx, agrees to PT, states he has "a lot of pain all over". Will be co-treating with OT due to poor patient mobility, impaired sitting balance and UE and LE function. Appearance Patient in bed post tx with nurse call, phone, tray, bed alarm on, spouse in the room. Mental Status Patient Orientation: Person, Confused Attachments: Hewitt Catheter, IV Transfers Therapy Code Descriptions/Definitions Functional [place] Measure: 0=Not Assessed/NA 4=Minimal Assistance 1=Total Assistance 5=Supervision or Setup 2=Maximal Assistance 6=Modified [place] 3=Moderate Assistance 7=Complete [place] Therapy Quality Codes: 6 Independent with activity with or without an assistive device 5 Patient requires set up or clean up by helper. Patient completes activity by themselves 4 Supervision or touching assist (CGA). [place] provide cues , steadying assist 3 The helper provides less than half the effort to complete the activity 2 The helper provides more than half the effort to complete the activity 1 Dependent. The helper does all the effort to complete an activity 7 Patient refused to complete or attempt activity 9 The patient did not perform the activity before the current illness or injury 88 Not attempted due to Medical conditions or safety concerns Transfers (B, C, W/C) (FIM): 1 Scootin Rollin Supine to/from Sit: 2 Patient attempted to assist with rolling and supine to sit but still needed max assist of 2. Patient was able to sit at the edge of the bed and perform reaching and sitting balance exercises and LE exercises. He did need some assist with sitting balance but was improved since yesterday. Weight Bearing Right Lower Extremity: Right Full Weight Bearing Left Lower Extremity: Left Weight Bearing/Tolerated Exercises Supine Ex: Heel Slides, Hip abd/add Supine Reps: 10 Seated Therapy Exercises: Ankle pumps, Long arc quads Seated Reps: 10 Patient also performed a reaching activity to work on sitting balance and limits of stability. Treatments bed mobility, transfers, LE exercises, sitting balance, UE activity Assessment Current Status: Fair Progress Improved sitting balance PT Short Term Goals Short Term Goals Transfers (B,C,W/C) (FIM): 2 PT Software Development Project Manager Goals Software Development Project Manager Goals PT Group Home Goals Time Frame: Jun 17, 2018 Transfers (B,C,W/C) (FIM): 3 Gait (FIM): 2 Gait distance (FIM): 1=up to 49 ft Gait Assistive Device: FWW PT Plan Problem List Problem List: Activity Tolerance, Functional Strength, Safety, Balance, Gait, Transfer, Bed Mobility, ROM Treatment/Plan Treatment Plan: Continue Plan of Care Treatment Plan: Bed Mobility, Education, Functional Activity [place], Functional Strength, Gait, Safety, Therapeutic Exercise, Transfers Treatment Duration: Jun 17, 2018 Frequency: 6 times per week (will increase as he is able to participate) Estimated Hrs Per Day: .5 hour per day Patient and/or Family Agrees t: Yes Safety Risks/Education Patient Education: Transfer Techniques, Correct Positioning, Safety Issues Teaching Recipient: Patient Teaching Methods: Demonstration, Discussion Response to Teaching: Reinforcement Needed Time/GCodes Time In: 1040 Time Out: 1058 Total Billed Treatment Time: 18 Total Billed Treatment 1 visit FA 18' Co-treated with OT for the whole 18 min. PT worked on bed mobility, rolling, sitting balance, LE exercises. OT worked on UE activities, reaching, sitting balance, transfers. LULÚ PEARSON PT Jun 11, 2018 11:07
--- NOTE | 2018-06-11 11:19 | NUR ---
IRF Evaluation: Order received to evaluate patient for the ARU. PT/OT notes reviewed and it appears patient is dependent with transfers, rolling/supine and all ADL's; therefore, patient would not be able to tolerate intensive therapies, at this time. Thank you for this referral.
[2018-06-11] MEDS ORDERED: hydrALAZINE (APESOLINE) 20 MG/ML VIAL IV PRN (11:30)
--- NOTE | 2018-06-11 11:48 | Occupational Ther Daily Note ---
OT Current Status-Daily Note Subjective pt laying in bed upon OT Arrival in no apparent distress. pt agreed to OT TX session with focus on increase static sitting balance for ADLS. noted increase alertness this date. co-treat with PT performed secondary being clinically approriate that could not be performed by a vision rehabilitation therapist due to complexity of the skills required by both PT/OT involved. Appearance post OT TX session pt laying in bed call moya, phone, tray, bed alarm on, spouse in the room Mental Status/Objective Therapy Code Descriptions/Definitions Functional [place] Measure: 0=Not Assessed/NA 4=Minimal Assistance 1=Total Assistance 5=Supervision or Setup 2=Maximal Assistance 6=Modified [place] 3=Moderate Assistance 7=Complete [place] Other Treatment pt required total assist X 2 person to perform supine to sit with maximum VC/ tactile cues by OT and PT to get to the end of bed. upon sitting EOB pt demo left lateral lean reuqiring hand over hand placement for proper positioning to maintain static sitting balance. OT gave pt maximum cueing to maintain upright positioning while PT had pt performing reaching out tasks. pt required total assit X2 person t perform sit to supin and total assist X 2 person to perform rolling in bed. noted decrease coordination in christine UE when asked to touch nose. present in room and sated pt was ambulatory PLOF (approx 15 ft) put required MOD A to perform sit to stand. this treatment included the skills, knowledge and judgement of both disciplines to allow the pt to receive optimal benefit from skilled therapy intervention. Education OT Patient Education: Energy conservation, Purpose of tx/functional activities , Safety issues, Transfer techniques Teaching Recipient: Patient Teaching Methods: Demonstration, Discussion Response to Teaching: Reinforcement Needed OT Short Term Goals Short Term Goals Eating(FIM): 2 Grooming(FIM): 2 Bathing(FIM): 2 Transfers (B,C,W/C) (FIM): 2 1=Demonstrate adherence to instructed precautions during ADL tasks. 2=Patient will verbalize/demonstrate understanding of assistive devices/ modifications for ADL. 3=Patient will improve strength/tolerance for activity to enable patient to perform ADL's. OT Prison Goals [employer] [place] [employer] Fruit Crop Farmer Goals Eating (FIM): 4 Grooming(FIM): 4 Bathing(FIM): 4 Transfers (B,C,W/C) (FIM): 4 1=Demonstrate adherence to instructed precautions during ADL tasks. 2=Patient will verbalize/demonstrate understanding of assistive devices/ modifications for ADL. 3=Patient will improve strength/tolerance for activity to enable patient to perform ADL's. OT Education/Plan Problem List/Assessment pt presents with functional limitations affecting areas of ADLS and functional mobility. pt would benefit from OT services to increase independence with ADLS and functional transfers. Discharge Recommendations Plan/Recommendations: Continue POC Therapy D/C Recommendations: 24 hr Supervision, Detention (TCU/NH) Treatment Plan/Plan of Care Patient would benefit from OT for education, treatment and training to promote independence in ADL's, mobility, safety and/or upper extremity function for ADL' s. Plan of Care: ADL Retraining, Caregiver Training, Functional Mobility, Group Exercise/Act as Ind, UE Funct Exercise/Act Treatment Duration: June 24, 2018 Frequency: 5 times per week Estimated Hrs Per Day: .25 hour per day Agreement: Yes Rehab Potential: Guarded Time/GCodes Start Time: 10:40 Stop Time: 11:00 Billed Treatment Time FA 20 minutes, 1 unit ENRICO HORN OT Jun 11, 2018 11:48
[2018-06-11] MEDS ORDERED: DONEPEZIL 10 MG (ARICEPT) TAB PO SCH (21:00)
[2018-06-11] MEDS ORDERED: SIMvastatin 10 MG (ZOCOR) TAB PO SCH (21:00)
[2018-06-11] MEDS ORDERED: risperiDONE 1 MG (RisperDAL) TAB PO SCH (21:00)
[2018-06-12] VITALS: BP 121/65
[2018-06-12] MEDS: HYDROcodone/APAP 5 MG/325 MG (LORTAB) TAB PO PRN (00:19)
[2018-06-12] MEDS: inSUlin ASPART (NovoLOG) 1 UNIT/0.01 ML (CHARGE PER UNIT) SC SCH ×3 (00:22→12:33)
[2018-06-12] MEDS: RT-ALBUTEROL/IPRATROPIUM 3 ML (DUONEB) VIAL INH SCH ×2 (03:06→09:22)
[2018-06-12 04:00] VITALS: BP 119/62
[2018-06-12 04:36] LABS: BASOPHILS % (AUTO) 0 % (0-10); EOSINOPHILS # (AUTO) 0.3 10^3/uL (0.0-0.3); EOSINOPHILS % (AUTO) 3 % (0-10); HEMATOCRIT 26 % (40-54); HEMOGLOBIN 8.1 G/DL (13.3-17.7); LYMPHOCYTES # (AUTO) 0.9 X 10^3 (1.0-4.0); LYMPHOCYTES % (AUTO) 9 % (12-44); MEAN CORPUSCULAR HEMOGLOBIN 30 PG (25-34); MEAN CORPUSCULAR HGB CONC 31 G/DL (32-36); MEAN CORPUSCULAR VOLUME 98 FL (80-99); MEAN PLATELET VOLUME 9.7 FL (7.4-10.4); MONOCYTES # (AUTO) 0.8 X 10^3 (0.0-1.0); MONOCYTES % (AUTO) 8 % (0-12); NEUTROPHILS # (AUTO) 7.9 X 10^3 (1.8-7.8); NEUTROPHILS % (AUTO) 81 % (42-75); PLATELET COUNT 124 10^3/uL (130-400); WHITE BLOOD COUNT 9.8 10^3/uL (4.3-11.0)
[2018-06-12 04:55] LABS: BUN/CREATININE RATIO 21; CALCIUM 8.1 MG/DL (8.5-10.1); CARBON DIOXIDE 25 MMOL/L (21-32); CHLORIDE 104 MMOL/L (98-107); CREATININE SERUM 0.92 MG/DL (0.60-1.30); GFR ESTIMATED > 60; GLUCOSE 105 MG/DL (70-105); PHOSPHORUS 1.8 MG/DL (2.3-4.7); POTASSIUM 3.9 MMOL/L (3.6-5.0); SODIUM 137 MMOL/L (135-145)
--- NOTE | 2018-06-12 07:44 | Pulmonary Progress Note ---
Sepsis Event Evaluation Height, Weight, BMI Height: 6'0.00" Weight: 205lbs. 0.0oz. 92.609840em; 27.8 BMI Method:Stated Exam Exam Vital Signs Date Time Temp Pulse Resp B/P (MAP) Pulse Ox O2 Delivery O2 Flow Rate FiO2 06/12/18 04:00 99.0 80 20 119/62 (81) 93 Nasal Cannula 5.00 06/12/18 03:06 90 Nasal Cannula 5.00 06/12/18 00:00 99.3 88 20 121/65 (83) 94 Nasal Cannula 5.00 06/11/18 20:35 99.4 85 22 142/65 (90) 94 Nasal Cannula 5.00 06/11/18 20:00 High Flow N/C 5.00 06/11/18 19:32 90 Nasal Cannula 5.00 06/11/18 16:55 98.6 64 20 123/58 (79) 92 Nasal Cannula 3.00 06/11/18 14:26 87 Nasal Cannula 3.00 06/11/18 11:00 96 High Flow N/C 3.00 06/11/18 10:30 99.1 75 20 112/65 (81) 92 Nasal Cannula 3.00 06/11/18 10:01 96 Nasal Cannula 3.00 06/11/18 10:00 86 14 134/66 (88) 96 Nasal Cannula 3.00 06/11/18 09:00 75 37 116/74 (88) 93 Nasal Cannula 3.00 06/11/18 08:00 78 22 131/79 (96) 95 Nasal Cannula 3.00 06/11/18 08:00 96 High Flow N/C 3.00 I & O 06/12/18 07:00 Intake Total 410 ml Output Total 725 ml Balance -315 ml Height & Weight Height: 6'0.00" Weight: 205lbs. 0.0oz. 92.072994jx; 27.8 BMI Method:Stated General Appearance: No Apparent Distress, WD/WN, Chronically ill HEENT: PERRL/EOMI, Normal ENT Inspection Neck: Normal Inspection Respiratory: Chest Non Tender, Lungs Clear, Normal Breath Sounds Cardiovascular: Regular Rate, Rhythm, No Edema Capillary Refill: Less Than 3 Seconds Peripheral Pulses: 2+ Dorsalis Pedis (R), 2+ Left Dors-Pedis (L), 2+ Radial Pulses (R), 2+ Radial Pulses (L) Gastrointestinal: non tender, soft Extremity: Normal Capillary Refill, Normal Inspection, Normal Range of Motion Neurologic/Psychiatric: Alert, No Motor/Sensory Deficits, Normal Mood/Affect, Disoriented Skin: Normal Color, Warm/Dry Lymphatic: No Adenopathy Results Lab Laboratory Tests 06/11/18 04:00 06/12/18 04:15 Assessment/Plan Assessment/Plan Left femoral neck fracture s/p surgical repair -Pain control Severe Alzheimers/Dementia Severe COPD - He does not usually require oxygen during the day just at night. -Oxygen -Will start SVNs -Will need ambulatory desat test prior to discharge Anemia -Monitor Debility, severe osteoarthritis in hips and knees bilaterally - rehab for evaluation for inpatient rehab. LUIS KRISHNAN DO Jun 12, 2018 07:43
[2018-06-12] MEDS ORDERED: SODIUM PHOSPHATE INJ 30 MM in NS (IVPB) 250 ML IV ONE (07:45)
--- NOTE | 2018-06-12 07:49 | Diagnostic Imaging Report ---
INDICATION: Dyspnea. Comparison made with prior examination 06/11/2018. FINDINGS: There is cardiomegaly. There is some venous congestion. No pleural effusion or pneumothorax. Mediastinum is unremarkable. IMPRESSION: Mild cardiomegaly and some central pulmonary venous congestion. Dictated by: Dictated on workstation # [id number]
[2018-06-12 08:00] VITALS: BP 187/77
[2018-06-12 08:35] LABS: ALANINE AMINOTRANSFERASE 13 U/L (0-55); ALBUMIN 2.5 GM/DL (3.2-4.5); ALKALINE PHOSPHATASE 53 U/L (40-136); BILIRUBIN,TOTAL 0.9 MG/DL (0.1-1.0); BUN/CREATININE RATIO 20; CALCIUM 8.2 MG/DL (8.5-10.1); CARBON DIOXIDE 26 MMOL/L (21-32); CHLORIDE 103 MMOL/L (98-107); CREATININE SERUM 0.93 MG/DL (0.60-1.30); GFR ESTIMATED > 60; GLUCOSE 101 MG/DL (70-105); POTASSIUM 3.8 MMOL/L (3.6-5.0); SODIUM 137 MMOL/L (135-145); TOTAL PROTEIN 5.9 GM/DL (6.4-8.2)
[2018-06-12] MEDS: meTOprolol SUCCINATE 100 MG (TOPROL XL) TAB PO SCH (08:41)
[2018-06-12] MEDS: ASPIRIN 81 MG CHEW (CHILDREN'S ASA) PO SCH (08:41)
[2018-06-12] MEDS: NAPROXEN 250 MG (NAPROSYN) TABLET PO SCH (08:42)
[2018-06-12] MEDS: amLODIPine 5 MG (NORVASC) TAB PO SCH (08:42)
[2018-06-12] MEDS: ENOXAPARIN 40 MG/0.4 ML (LOVENOX) SYR SC SCH (08:42)
--- NOTE | 2018-06-12 11:03 | Progress Note-Hospitalist ---
Progress Note Progress Notes/Assess & Plan Date Seen 06/12/18 Time Seen by Provider: 10:59 Assessment & Plan The patient is much more alert today than previously. He came to us from a [facility] and will be returning there. Given his dementia I am not sure how well he will perform with physical therapy but we are going to give a try. His states that he has a concentrator at [facility] has used oxygen chronically. Vital signs are stable. Physical exam: The patient responds a bit to the discussion with the . He is alert and his color is good. Lungs are clear to auscultation. CV is regular. There is a Hewitt catheter in place. Impression: Operative repair left hip fracture. 2.advanced dementia. 3.COPD with chronic oxygen requirement. Plan: Return to [facility]. He will require ambulance transportation. Remove Kash. NICKO WEINSTEIN MD Jun 12, 2018 11:03
--- NOTE | 2018-06-12 11:11 | Discharge Inst-Skilled Nursing ---
Discharge Inst-Skilled NF Chief Complaint The patient is an 83-year-old white male intermediate patient who apparently fell shortly after midnight and was not observed. He reported pain and was unwilling to bear weight and was sent to the emergency room where he was found to have a hip fracture. His only other health problem besides the dementia is that of mild to moderate COPD. He is related to Dr. Crabtree who spoke to me earlier today and related that the family was concerned about performing in the operative procedure on him. He told them and I would second that that this really is not about prolonging life but rather providing pain relief to the patient and comfort to those who have to care for him after suffering this injury. Patient Instructions Patient Problems: Advanced dementia. 2.subacute repair hip fracture. 3 COPD oxygen requiring Goal: PT to restore christianity and ambulation Consult/Follow Up/Orders Skilled NF Admit to: [facility] Certification (SNF) I certify that SNF services are required to be given on an inpatient basis because of the above named patient's need for usp care on a continuing basis for the conditions(s) for which he/she was receiving inpatient hospital services prior to his/her transfer to the SNF. Custodial Facility Order: Specialties Operator-Evaluate & Treat, Physical Therapy-Evaluate & Treat Oxygen Delivery Method: Nasal Cannula Discharge Diet: No Restrictions Daily Activity as Tolerated: Yes New & Resume Previous Orders New & Resume Previous Orders See medications on discharge sequence Compa Weinstein Jun 12, 2018 11:07 COMPA WEINSTEIN MD Jun 12, 2018 11:10
--- NOTE | 2018-06-12 11:30 | NUR ---
Important Message from Medicare presented/reviewed/signed and placed in patient chart. and patient voiced no intention to appeal and deny any needs or further questions at this time.
--- NOTE | 2018-06-12 11:44 | NUR ---
CM/SS patient will discharge this day to [facility] where he has been. Patient will go as skilled as would like to try the rehabilitation. They have spoken to [facility] previously and would be interested in that if patient does not do well with therapies. Discharge information sent to [facility]. Information sent to EMS as they will transport this day due to patient hip pain. Family and RNing updated.
[2018-06-12 12:00] VITALS: BP 135/65
[2018-06-12 14:02] VITALS: BP 187/77
== END 2018-06-12 14:40 | DRG 469 ==
LOC: EDUNIT# 01:33 → ER 01:35 → 4TH 03:18 → ICU 16:58 → 4TH 06-11 10:37
PROVIDERS: ADMIT Internal Medicine; ATTEND Internal Medicine
PROC: 0BH17EZ Insertion of Endotracheal Airway into Trachea, Via Natural or Artificial Opening (ICD-10-PCS; 2018-06-09)
PROC: 5A1935Z Respiratory Ventilation, Less than 24 Consecutive Hours (ICD-10-PCS; 2018-06-09)
PROC: 0SRS01A Replacement of Left Hip Joint, Femoral Surface with Metal Synthetic Substitute, Uncemented, Open Approach (ICD-10-PCS; principal; 2018-06-09 13:49)
DX: S72.012A Unspecified intracapsular fracture of left femur, initial encounter for closed fracture (principal); J96.00 Acute respiratory failure, unspecified whether with hypoxia or hypercapnia; J44.9 Chronic obstructive pulmonary disease, unspecified; I10 Essential (primary) hypertension; G30.9 Alzheimer's disease, unspecified; F02.80 Dementia in other diseases classified elsewhere, unspecified severity, without behavioral disturbance, psychotic disturbance, mood disturbance, and anxiety; I48.91 Unspecified atrial fibrillation; E86.9 Volume depletion, unspecified; Z66 Do not resuscitate; M16.0 Bilateral primary osteoarthritis of hip; M17.0 Bilateral primary osteoarthritis of knee; G47.33 Obstructive sleep apnea (adult) (pediatric); E78.00 Pure hypercholesterolemia, unspecified; E66.9 Obesity, unspecified; Z68.31 Body mass index [BMI] 31.0-31.9, adult; Z86.79 Personal history of other diseases of the circulatory system; Z87.891 Personal history of nicotine dependence; Z99.81 Dependence on supplemental oxygen; Z95.828 Presence of other vascular implants and grafts; W19.XXXA Unspecified fall, initial encounter
CPT/HCPCS: 36415; 36600; 70450; 71045; 72125; 72170; 73523; 73562; 80048; 80053; 82805; 82962; 83735; 84100; 85025; 85610; 85730; 86850; 86900; 86901; 93005; 94002; 94003; 94640; 94760; 94799

== ENCOUNTER 2018-06-18 03:24 | Emergency (ER) | payer MEDICARE ==
[~2018-06-18] VITALS: Ht 182.9 cm; Wt 93.0 kg
[~2018-06-18 03:24] MED LIST changes: +ALBU2.5V4 NEB; +ASPI-999 PO; +DONE10TA41 PO; +FLUT1BLS INH; +NYST15CR TOP; +RISP1TAB3 PO; +TRAZ-189 PO; +[UNRECOGNIZED DRUG - CODE] TP
--- OUTSIDE RECORDS SUMMARY | 2018-06-18 03:32 | XMS REPORT | Continuity of Care Document ---
Author Organization Unknown Address Unknown Allergies Active Description Code Type Severity Reaction Onset Reported/Identified Relationship to Patient Clinical Status Yes No Known Drug Allergies [id number] Drug Allergy Unknown N/A 08/12/2014 Medications There [...] ABDOMINAL AORTIC ANEURYSM, WITHOUT RUPTU 05/06/2018 XAVI RIOS MD Ot I70.1 ATHEROSCLEROSIS OF RENAL ARTERY 05/09/2018 JASON PHELAN DO Ot F03.90 UNSPECIFIED DEMENTIA WITHOUT BEHAVIORAL 05/09/2018 JASON PHELAN DO Ot J44.9 CHRONIC OBSTRUCTIVE PULMONARY DISEASE, U 06/03/2018 JASON PHELAN DO Ot F03.90 UNSPECIFIED DEMENTIA WITHOUT BEHAVIORAL 06/03/2018 ZHANE DOJASON Ot J44.9 CHRONIC OBSTRUCTIVE PULMONARY DISEASE, U 06/04/2018 JASON PHELAN DO Ot F03.90 UNSPECIFIED DEMENTIA WITHOUT BEHAVIORAL 06/04/2018 JASON PHELAN DO Ot J44.9 CHRONIC OBSTRUCTIVE PULMONARY DISEASE, U 06/12/2018 JAZZ LEMOS MD Ot E66.9 OBESITY, UNSPECIFIED 06/12/2018 JAZZ LEMOS MD Ot E78.00 PURE HYPERCHOLESTEROLEMIA, UNSPECIFIED 06/12/2018 JAZZ LEMOS MD, Ot E86.9 VOLUME DEPLETION, UNSPECIFIED 06/12/2018 JAZZ LEMOS MD Ot F02.80 DEMENTIA IN OT DISEASES CLASSD ELSWHR W 06/12/2018 JAZZ LEMOS MD, Ot G30.9 ALZHEIMER'S DISEASE, UNSPECIFIED 06/12/2018 JAZZ LEMOS MD, Ot G47.33 OBSTRUCTIVE SLEEP APNEA (ADULT) (PEDIATR 06/12/2018 JAZZ LEMOS MD Ot I10 ESSENTIAL (PRIMARY) HYPERTENSION 06/12/2018 JAZZ LEMOS MD, Ot J44.9 CHRONIC OBSTRUCTIVE PULMONARY DISEASE, U 06/12/2018 JAZZ LEMOS MD Ot J96.00 ACUTE RESPIRATORY FAILURE, UNSP W HYPOXI 06/12/2018 JAZZ LEMOS MD Ot M19.91 PRIMARY OSTEOARTHRITIS, UNSPECIFIED SITE 06/12/2018 JAZZ LEMOS MD Ot S72.012A UNSP INTRACAPSULAR FRACTURE OF LEFT FEMU 06/12/2018 JAZZ LEMOS MD Ot W19.XXXA UNSPECIFIED FALL, INITIAL ENCOUNTER 06/12/2018 JAZZ LEMOS MD Ot Z66 DO NOT RESUSCITATE 06/12/2018 JAZZ LEMOS MD Ot Z68.31 BODY MASS INDEX (BMI) 31.0-31.9, ADULT 06/12/2018 JAZZ LEMOS MD Ot Z86.79 PERSONAL HISTORY OF OTHER DISEASES OF TH 06/12/2018 JAZZ LEMOS MD, Ot Z87.891 PERSONAL HISTORY OF NICOTINE DEPENDENCE 06/12/2018 JAZZ LEMOS MD Ot Z95.828 PRESENCE OF OTHER VASCULAR IMPLANTS AND 06/12/2018 JAZZ LEMOS MD, Ot Z99.81 DEPENDENCE ON SUPPLEMENTAL OXYGEN 06/12/2018 JAZZ LEMOS MD, Ot E66.9 OBESITY, UNSPECIFIED 06/12/2018 JAZZ LEMOS MD Ot E78.00 PURE HYPERCHOLESTEROLEMIA, UNSPECIFIED 06/12/2018 JAZZ LEMOS MD, Ot E86.9 VOLUME DEPLETION, UNSPECIFIED 06/12/2018 JAZZ LEMOS MD Ot F02.80 DEMENTIA IN OTH DISEASES CLASSD ELSWHR W 06/12/2018 JAZZ LEMOS MD, Ot G30.9 ALZHEIMER'S DISEASE, UNSPECIFIED 06/12/2018 JAZZ LEMOS MD, Ot G47.33 OBSTRUCTIVE SLEEP APNEA (ADULT) (PEDIATR 06/12/2018 JAZZ LEMOS MD, Ot I10 ESSENTIAL (PRIMARY) HYPERTENSION 06/12/2018 JAZZ LEMOS MD, Ot J44.9 CHRONIC OBSTRUCTIVE PULMONARY DISEASE, U 06/12/2018 JAZZ LEMOS MD, Ot J96.00 ACUTE RESPIRATORY FAILURE, UNSP W HYPOXI 06/12/2018 JAZZ LEMOS MD, Ot M19.91 PRIMARY OSTEOARTHRITIS, UNSPECIFIED SITE 06/12/2018 JAZZ LEMOS MD Ot S72.012A UNSP INTRACAPSULAR FRACTURE OF LEFT FEMU 06/12/2018 JAZZ LEMOS MD Ot W19.XXXA UNSPECIFIED FALL, INITIAL ENCOUNTER 06/12/2018 JAZZ LEMOS MD Ot Z66 DO NOT RESUSCITATE 06/12/2018 JAZZ LEMOS MD Ot Z68.31 BODY MASS INDEX (BMI) 31.0-31.9, ADULT 06/12/2018 JAZZ LEMOS MD, Ot Z86.79 PERSONAL HISTORY OF OTHER DISEASES OF TH 06/12/2018 JAZZ LEMOS MD, Ot Z87.891 PERSONAL HISTORY OF NICOTINE DEPENDENCE 06/12/2018 JAZZ LEMOS MD Ot Z95.828 PRESENCE OF OTHER VASCULAR IMPLANTS AND 06/12/2018 JAZZ LEMOS MD Ot Z99.81 DEPENDENCE ON SUPPLEMENTAL OXYGEN 06/12/2018 JAZZ LEMOS MD, Ot E66.9 OBESITY, UNSPECIFIED 06/12/2018 JAZZ LEMOS MD, Ot E78.00 PURE HYPERCHOLESTEROLEMIA, UNSPECIFIED 06/12/2018 JAZZ LEMOS MD, Ot E86.9 VOLUME DEPLETION, UNSPECIFIED 06/12/2018 JAZZ LEMOS MD, Ot F02.80 DEMENTIA IN OT DISEASES CLASSD ELSWHR W 06/12/2018 JAZZ LEMOS MD, Ot G30.9 ALZHEIMER'S DISEASE, UNSPECIFIED 06/12/2018 JAZZ LEMOS MD, Ot G47.33 OBSTRUCTIVE SLEEP APNEA (ADULT) (PEDIATR 06/12/2018 JAZZ LEMOS MD, Ot I10 ESSENTIAL (PRIMARY) HYPERTENSION 06/12/2018 JAZZ LEMOS MD, Ot J44.9 CHRONIC OBSTRUCTIVE PULMONARY DISEASE, U 06/12/2018 JAZZ LEMOS MD, Ot J96.00 ACUTE RESPIRATORY FAILURE, UNSP W HYPOXI 06/12/2018 JAZZ LEMOS MD, Ot M19.91 PRIMARY OSTEOARTHRITIS, UNSPECIFIED SITE 06/12/2018 JAZZ LEMOS MD Ot S72.012A UNSP INTRACAPSULAR FRACTURE OF LEFT FEMU 06/12/2018 JAZZ LEMOS MD, Ot W19.XXXA UNSPECIFIED FALL, INITIAL ENCOUNTER 06/12/2018 JAZZ LEMOS MD Ot Z66 DO NOT RESUSCITATE 06/12/2018 JAZZ LEMOS MD, Ot Z68.31 BODY MASS INDEX (BMI) 31.0-31.9, ADULT 06/12/2018 JAZZ LEMOS MD, Ot Z86.79 PERSONAL HISTORY OF OTHER DISEASES OF TH 06/12/2018 JAZZ LEMOS MD, Ot Z87.891 PERSONAL HISTORY OF NICOTINE DEPENDENCE 06/12/2018 JAZZ LEMOS MD, Ot Z95.828 PRESENCE OF OTHER VASCULAR IMPLANTS AND 06/12/2018 JAZZ LEMOS MD Ot Z99.81 DEPENDENCE ON SUPPLEMENTAL OXYGEN Procedures Code Description Performed By Performed On [id number] INSERTION OF ENDOTRACHEAL AIRWAY INTO TR 06/09/2018 [id number] REPLACE L HIP JT, FEMORAL W METAL, UNCEM 06/09/2018 [id number] RESPIRATORY VENTILATION, LESS THAN 24 CO 06/09/2018 Results Test Result Range Whole blood basic [...] plasma calcium measurement (mass/volume) 9.2 mg/dL 8.5-10.1 Complete blood count (CBC) with automated white blood cell (WBC) differential - 06/09/18 04:14 Blood leukocytes automated count (number/volume) 9.6 10*3/uL 4.3-11.0 Blood erythrocytes automated count (number/volume) 3.87 10*6/uL 4.35-5.85 Venous blood hemoglobin measurement (mass/volume) 11.8 g/dL 13.3-17.7 Blood hematocrit (volume fraction) 38 % 40-54 Automated erythrocyte mean corpuscular volume 98 [foz_us] 80-99 Automated erythrocyte mean corpuscular hemoglobin (mass per erythrocyte) 30 pg 25-34 Automated erythrocyte mean corpuscular hemoglobin concentration measurement ( mass/volume) 31 g/dL 32-36 Automated erythrocyte distribution width ratio 14.9 % 10.0-14.5 Automated blood platelet count (count/volume) 181 10*3/uL 130-400 Automated blood platelet mean volume measurement 9.3 [foz_us] 7.4-10.4 Automated blood neutrophils/100 leukocytes 78 % 42-75 Automated blood lymphocytes/100 leukocytes 10 % 12-44 Blood monocytes/100 leukocytes 9 % 0-12 Automated blood eosinophils/100 leukocytes 3 % 0-10 Automated blood basophils/100 leukocytes 0 % 0-10 Blood neutrophils automated count (number/volume) 7.5 10*3 1.8-7.8 Blood lymphocytes automated count (number/volume) 1.0 10*3 1.0-4.0 Blood monocytes automated count (number/volume) 0.8 10*3 0.0-1.0 Automated eosinophil count 0.3 10*3/uL 0.0-0.3 Automated blood basophil count (count/volume) 0.0 10*3/uL 0.0-0.1 PT panel in platelet poor plasma by coagulation assay - 06/09/18 04:14 Prothrombin time (PT) in platelet poor plasma by coagulation assay 15.4 s 12.2-14.7 INR in platelet poor plasma or blood by coagulation assay 1.2 0.8-1.4 Activated partial thromboplastin time (aPTT) in platelet poor plasma bycoagulation assay - 06/09/18 04:14 Activated partial thromboplastin time (aPTT) in platelet poor plasma bycoagulation assay 24 s 24-35 Comprehensive metabolic panel - 06/09/18 04:14 Serum or plasma sodium measurement (moles/volume) 140 mmol/L 135-145 Serum or plasma potassium measurement (moles/volume) 4.1 mmol/L 3.6-5.0 Serum or plasma chloride measurement (moles/volume) 104 mmol/L 98-107 Carbon dioxide 25 mmol/L 21-32 Serum or plasma anion gap determination (moles/volume) 11 mmol/L 5-14 Serum or plasma urea nitrogen measurement (mass/volume) 19 mg/dL 7-18 Serum or plasma creatinine measurement (mass/volume) 1.16 mg/dL 0.60-1.30 Serum or plasma urea nitrogen/creatinine mass ratio 16 NRG Serum or plasma creatinine measurement with calculation of estimated glomerular filtration rate 60 NRG Serum or plasma glucose measurement (mass/volume) 126 mg/dL 70-105 Serum or plasma calcium measurement (mass/volume) 9.0 mg/dL 8.5-10.1 Serum or plasma total bilirubin measurement (mass/volume) 0.6 mg/dL 0.1-1.0 Serum or plasma alkaline phosphatase measurement (enzymatic activity/volume) 59 U/L 40-136 Serum or plasma aspartate aminotransferase measurement (enzymatic activity/ volume) 22 U/L 5-34 Serum or plasma alanine aminotransferase measurement (enzymatic activity/volume ) 31 U/L 0-55 Serum or plasma protein measurement (mass/volume) 7.4 g/dL 6.4-8.2 Serum or plasma albumin measurement (mass/volume) 3.1 g/dL 3.2-4.5 CALCIUM CORRECTED 9.7 mg/dL 8.5-10.1 Blood type T Indirect antibody screen panel - 06/09/18 13:47 ABO+Rh group OP NRG Transfusion band number [id number] NRG Blood group antibody screen NEGATIVE NRG Arterial blood gas measurement - 06/09/18 22:15 Blood pCO2 56 mm[Hg] 35-45 Blood pO2 252 mm[Hg] 79-93 Arterial blood bicarbonate measurement (moles/volume) 29 mmol/L 23-27 Arterial blood base excess by calculation 2.9 mmol/L -2.5 -2.5 Arterial blood oxygen saturation measurement 100 % 94- 100 * Inhaled oxygen flow rate 70% NRG Arterial blood pH measurement with patient temperature correction 7.32 7.37-7.43 Arterial blood carbon dioxide, total measurement (moles/volume) 30.4 mmol/L 21.0-31.0 Body site RIGHT RADIAL NRG Assessment of wrist artery patency prior to arterial puncture YES- POS NRG Setting of ventilation mode YES NRG Measurement of body temperature 97.7 NRG Capillary blood glucose measurement by glucometer (mass/volume) - 06/10/18 02: 11 Capillary blood glucose measurement by glucometer (mass/volume) 116 mg/dL 70-110 Complete blood count (CBC) with automated white blood cell (WBC) differential - 06/10/18 03:10 Blood leukocytes automated count (number/volume) 11.1 10*3/uL 4.3-11.0 Blood erythrocytes automated count (number/volume) 3.14 10*6/uL 4.35-5.85 Venous blood hemoglobin measurement (mass/volume) 9.8 g/dL 13.3-17.7 Blood hematocrit (volume fraction) 31 % 40-54 Automated erythrocyte mean corpuscular volume 100 [foz_us] 80-99 Automated erythrocyte mean corpuscular hemoglobin (mass per erythrocyte) 31 pg 25-34 Automated erythrocyte mean corpuscular hemoglobin concentration measurement ( mass/volume) 31 g/dL 32-36 Automated erythrocyte distribution width ratio 14.9 % 10.0-14.5 Automated blood platelet count (count/volume) 148 10*3/uL 130-400 Automated blood platelet mean volume measurement 9.7 [foz_us] 7.4-10.4 Automated blood neutrophils/100 leukocytes 83 % 42-75 Automated blood lymphocytes/100 leukocytes 7 % 12-44 Blood monocytes/100 leukocytes 8 % 0-12 Automated blood eosinophils/100 leukocytes 2 % 0-10 Automated blood basophils/100 leukocytes 0 % 0-10 Blood neutrophils automated count (number/volume) 9.2 10*3 1.8-7.8 Blood lymphocytes automated count (number/volume) 0.8 10*3 1.0-4.0 Blood monocytes automated count (number/volume) 0.9 10*3 0.0-1.0 Automated eosinophil count 0.2 10*3/uL 0.0-0.3 Automated blood basophil count (count/volume) 0.0 10*3/uL 0.0-0.1 Whole blood basic metabolic panel - 06/10/18 03:10 Serum or plasma sodium measurement (moles/volume) 141 mmol/L 135-145 Serum or plasma potassium measurement (moles/volume) 4.5 mmol/L 3.6-5.0 Serum or plasma chloride measurement (moles/volume) 105 mmol/L 98-107 Carbon dioxide 27 mmol/L 21-32 Serum or plasma anion gap determination (moles/volume) 9 mmol/L 5-14 Serum or plasma urea nitrogen measurement (mass/volume) 16 mg/dL 7-18 Serum or plasma creatinine measurement (mass/volume) 1.00 mg/dL 0.60-1.30 Serum or plasma urea nitrogen/creatinine mass ratio 16 NRG Serum or plasma creatinine measurement with calculation of estimated glomerular filtration rate > NRG Serum or plasma glucose measurement (mass/volume) 115 mg/dL 70-105 Serum or plasma calcium measurement (mass/volume) 8.4 mg/dL 8.5-10.1 Serum or plasma phosphate measurement (mass/volume) - 06/10/18 03:10 Serum or plasma phosphate measurement (mass/volume) 2.9 mg/dL 2.3-4.7 Magnesium - 06/10/18 03:10 Magnesium 1.9 mg/dL 1.8-2.4 Arterial blood gas measurement - 06/10/18 05:00 Blood pCO2 55 mm[Hg] 35-45 Blood pO2 51 mm[Hg] 79-93 Arterial blood bicarbonate measurement (moles/volume) 29 mmol/L 23-27 Arterial blood base excess by calculation 3.1 mmol/L -2.5 -2.5 Arterial blood oxygen saturation measurement 80 % 94-100 * Inhaled oxygen flow rate 40% NRG Arterial blood pH measurement with patient temperature correction 7.33 7.37-7.43 Arterial blood carbon dioxide, total measurement (moles/volume) 30.2 mmol/L 21.0-31.0 Body site RIGHT RADIAL NRG Assessment of wrist artery patency prior to arterial puncture YES- POS NRG Setting of ventilation mode YES NRG Measurement of body temperature 98.3 NRG Capillary blood glucose measurement by glucometer (mass/volume) - 06/10/18 11: 41 Capillary blood glucose measurement by glucometer (mass/volume) 117 mg/dL 70-110 Capillary blood glucose measurement by glucometer (mass/volume) - 06/10/18 17: 39 Capillary blood glucose measurement by glucometer (mass/volume) 116 mg/dL 70-110 Complete blood count (CBC) with automated white blood cell (WBC) differential - 06/11/18 04:00 Blood leukocytes automated count (number/volume) 10.7 10*3/uL 4.3-11.0 Blood erythrocytes automated count (number/volume) 2.96 10*6/uL 4.35-5.85 Venous blood hemoglobin measurement (mass/volume) 9.2 g/dL 13.3-17.7 Blood hematocrit (volume fraction) 30 % 40-54 Automated erythrocyte mean corpuscular volume 100 [foz_us] 80-99 Automated erythrocyte mean corpuscular hemoglobin (mass per erythrocyte) 31 pg 25-34 Automated erythrocyte mean corpuscular hemoglobin concentration measurement ( mass/volume) 31 g/dL 32-36 Automated erythrocyte distribution width ratio 15.1 % 10.0-14.5 Automated blood platelet count (count/volume) 117 10*3/uL 130-400 Automated blood platelet mean volume measurement 9.9 [foz_us] 7.4-10.4 Automated blood neutrophils/100 leukocytes 79 % 42-75 Automated blood lymphocytes/100 leukocytes 9 % 12-44 Blood monocytes/100 leukocytes 9 % 0-12 Automated blood eosinophils/100 leukocytes 3 % 0-10 Automated blood basophils/100 leukocytes 0 % 0-10 Blood neutrophils automated count (number/volume) 8.4 10*3 1.8-7.8 Blood lymphocytes automated count (number/volume) 1.0 10*3 1.0-4.0 Blood monocytes automated count (number/volume) 1.0 10*3 0.0-1.0 Automated eosinophil count 0.3 10*3/uL 0.0-0.3 Automated blood basophil count (count/volume) 0.0 10*3/uL 0.0-0.1 Whole blood basic metabolic panel - 06/11/18 04:00 Serum or plasma sodium measurement (moles/volume) 139 mmol/L 135-145 Serum or plasma potassium measurement (moles/volume) 4.3 mmol/L 3.6-5.0 Serum or plasma chloride measurement (moles/volume) 105 mmol/L 98-107 Carbon dioxide 25 mmol/L 21-32 Serum or plasma anion gap determination (moles/volume) 9 mmol/L 5-14 Serum or plasma urea nitrogen measurement (mass/volume) 17 mg/dL 7-18 Serum or plasma creatinine measurement (mass/volume) 0.94 mg/dL 0.60-1.30 Serum or plasma urea nitrogen/creatinine mass ratio 18 NRG Serum or plasma creatinine measurement with calculation of estimated glomerular filtration rate > NRG Serum or plasma glucose measurement (mass/volume) 91 mg/dL 70-105 Serum or plasma calcium measurement (mass/volume) 8.2 mg/dL 8.5-10.1 Serum or plasma phosphate measurement (mass/volume) - 06/11/18 04:00 Serum or plasma phosphate measurement (mass/volume) 2.5 mg/dL 2.3-4.7 Magnesium - 06/11/18 04:00 Magnesium 1.7 mg/dL 1.8-2.4 Capillary blood glucose measurement by glucometer (mass/volume) - 06/11/18 12: 26 Capillary blood glucose measurement by glucometer (mass/volume) 138 mg/dL 70-110 Capillary blood glucose measurement by glucometer (mass/volume) - 06/11/18 18: 46 Capillary blood glucose measurement by glucometer (mass/volume) 110 mg/dL 70-110 Capillary blood glucose measurement by glucometer (mass/volume) - 06/12/18 00: 22 Capillary blood glucose measurement by glucometer (mass/volume) 106 mg/dL 70-110 Complete blood count (CBC) with automated white blood cell (WBC) differential - 06/12/18 04:15 Blood leukocytes automated count (number/volume) 9.8 10*3/uL 4.3-11.0 Blood erythrocytes automated count (number/volume) 2.67 10*6/uL 4.35-5.85 Venous blood hemoglobin measurement (mass/volume) 8.1 g/dL 13.3-17.7 Blood hematocrit (volume fraction) 26 % 40-54 Automated erythrocyte mean corpuscular volume 98 [foz_us] 80-99 Automated erythrocyte mean corpuscular hemoglobin (mass per erythrocyte) 30 pg 25-34 Automated erythrocyte mean corpuscular hemoglobin concentration measurement ( mass/volume) 31 g/dL 32-36 Automated erythrocyte distribution width ratio 15.0 % 10.0-14.5 Automated blood platelet count (count/volume) 124 10*3/uL 130-400 Automated blood platelet mean volume measurement 9.7 [foz_us] 7.4-10.4 Automated blood neutrophils/100 leukocytes 81 % 42-75 Automated blood lymphocytes/100 leukocytes 9 % 12-44 Blood monocytes/100 leukocytes 8 % 0-12 Automated blood eosinophils/100 leukocytes 3 % 0-10 Automated blood basophils/100 leukocytes 0 % 0-10 Blood neutrophils automated count (number/volume) 7.9 10*3 1.8-7.8 Blood lymphocytes automated count (number/volume) 0.9 10*3 1.0-4.0 Blood monocytes automated count (number/volume) 0.8 10*3 0.0-1.0 Automated eosinophil count 0.3 10*3/uL 0.0-0.3 Automated blood basophil count (count/volume) 0.0 10*3/uL 0.0-0.1 Whole blood basic metabolic panel - 06/12/18 04:15 Serum or plasma sodium measurement (moles/volume) 137 mmol/L 135-145 Serum or plasma potassium measurement (moles/volume) 3.9 mmol/L 3.6-5.0 Serum or plasma chloride measurement (moles/volume) 104 mmol/L 98-107 Carbon dioxide 25 mmol/L 21-32 Serum or plasma anion gap determination (moles/volume) 8 mmol/L 5-14 Serum or plasma urea nitrogen measurement (mass/volume) 19 mg/dL 7-18 Serum or plasma creatinine measurement (mass/volume) 0.92 mg/dL 0.60-1.30 Serum or plasma urea nitrogen/creatinine mass ratio 21 NRG Serum or plasma creatinine measurement with calculation of estimated glomerular filtration rate > NRG Serum or plasma glucose measurement (mass/volume) 105 mg/dL 70-105 Serum or plasma calcium measurement (mass/volume) 8.1 mg/dL 8.5-10.1 Serum or plasma phosphate measurement (mass/volume) - 06/12/18 04:15 Serum or plasma phosphate measurement (mass/volume) 1.8 mg/dL 2.3-4.7 Magnesium - 06/12/18 04:15 Magnesium 2.0 mg/dL 1.8-2.4 Capillary blood glucose measurement by glucometer (mass/volume) - 06/12/18 05: 55 Capillary blood glucose measurement by glucometer (mass/volume) 103 mg/dL 70-110 Comprehensive metabolic panel - 06/12/18 08:05 Serum or plasma sodium measurement (moles/volume) 137 mmol/L 135-145 Serum or plasma potassium measurement (moles/volume) 3.8 mmol/L 3.6-5.0 Serum or plasma chloride measurement (moles/volume) 103 mmol/L 98-107 Carbon dioxide 26 mmol/L 21-32 Serum or plasma anion gap determination (moles/volume) 8 mmol/L 5-14 Serum or plasma urea nitrogen measurement (mass/volume) 19 mg/dL 7-18 Serum or plasma creatinine measurement (mass/volume) 0.93 mg/dL 0.60-1.30 Serum or plasma urea nitrogen/creatinine mass ratio 20 NRG Serum or plasma creatinine measurement with calculation of estimated glomerular filtration rate > NRG Serum or plasma glucose measurement (mass/volume) 101 mg/dL 70-105 Serum or plasma calcium measurement (mass/volume) 8.2 mg/dL 8.5-10.1 Serum or plasma total bilirubin measurement (mass/volume) 0.9 mg/dL 0.1-1.0 Serum or plasma alkaline phosphatase measurement (enzymatic activity/volume) 53 U/L 40-136 Serum or plasma aspartate aminotransferase measurement (enzymatic activity/ volume) 30 U/L 5-34 Serum or plasma alanine aminotransferase measurement (enzymatic activity/volume ) 13 U/L 0-55 Serum or plasma protein measurement (mass/volume) 5.9 g/dL 6.4-8.2 Serum or plasma albumin measurement (mass/volume) 2.5 g/dL 3.2-4.5 CALCIUM CORRECTED 9.4 mg/dL 8.5-10.1 Capillary blood glucose measurement by glucometer (mass/volume) - 06/12/18 12: 32 Capillary blood glucose measurement by glucometer (mass/volume) 120 mg/dL 70-110 Encounters ACCT No. Visit Date/Time Discharge Status Pt. Type Provider Facility Loc./Unit Complaint [id number] 06/09/2018 03:18:00 06/12/2018 14:40:00 DIS Inpatient JAZZ LEMOS MD [facility] 4TH LEFT HIP FX [id number] 05/07/2018 14:23:00 05/07/2018 23:59:59 CLS Outpatient JASON PHELAN DO [facility] RAD COPD [id number] 06/15/2017 10:45:00 06/15/2017 23:59:59 CLS Outpatient XAVI RIOS MD [facility] LAB I70.1 [id number] 04/03/2017 07:20:00 04/03/2017 23:59:59 CLS Outpatient MORIAH HAMMOND MD [facility] CARD ABD AORTIC ANEURYSM [id number] 03/27/2017 11:12:00 03/27/2017 23:59:59 CLS Outpatient XAVI RIOS MD [facility] RT ABD AORTIC ANEURYSM [id number] 03/25/2017 13:46:00 03/25/2017 23:59:59 CLS Preadmit XAVI RIOS MD [facility] CARD ABD AORTIC ANEURYSM [id number] 01/24/2015 12:13:00 01/31/2015 13:20:00 DIS Inpatient JASON PHELAN DO [facility] 4TH PNUEMONIA [id number] 08/27/2014 14:10:00 08/27/2014 23:59:59 CLS Outpatient JASON PHELAN DO [facility] RT COPD [id number] 08/12/2014 06:33:00 08/12/2014 23:59:59 CLS Outpatient JASON PHELAN DO [facility] CARD DSYPNEA [id number] 09/04/2013 20:02:00 09/05/2013 06:30:00 DIS Outpatient JASON PHELAN DO [facility] SLEEP CEDRIC,AMI 23
--- NOTE | 2018-06-18 04:32 | ED Hip Pain/Injury ---
General Chief Complaint: Hip/Pelvic Problems Stated Complaint: POSS LEFT HIP FX Nursing Triage Note: TO ED [facility]IA [facility]. [facility] STATES WHEN TURNING THIS AM THEY HEARD A POP AND PT SCREAMED AND CRIED OUT IN PAIN. PT RECENTLY DC'D 06/12/18 FROM THIS FACILITY AFTER RECENT LEFT FEMUR FX WITH REPAIR. DRSG TO LEFT HIP C/D/I. PER EMS PT CRIED OUT AND MOANED IN PAIN WITH BUMPS ON RIDE FROM [facility]. PT DID NOT C/O PAIN DURING TRANSFER FROM COT TO ER BED AND NO C/O OF PAIN OR DISCOMFORT WITH DOCTOR MANIPULATION OF LEFT LEG. Source: patient, family, EMS, caregiver Exam Limitations: no limitations History of Present Illness Date Seen by Provider: June 18, 2018 Time Seen by Provider: 03:27 Initial Comments This 83-year-old gentleman presents to the emergency room via EMS with complaints of left hip pain. skilled nursing staff reported they were rolling him in bed when they heard a pop and he screamed in pain. EMS reports he seemed to be in pain with bumps in the road in route. However, patient denies pain on arrival and seems to have an unremarkable exam. He is an unreliable historian due to dementia. Patient has a left hip prosthesis recently implanted after having a fracture on June 09. Allergies and Home Medications Allergies Coded Allergies: No Known Drug Allergies (Unverified , 08/12/14) Home Medications Albuterol Sulfate 2.5 Mg/3 Ml Vial.neb, 2.5 MG NEB BID, (Reported) Amlodipine Besylate 5 Mg Tablet, 5 MG PO DAILY, (Reported) Aspirin 81 Mg Tab.chew, 81 MG PO DAILY, (Reported) Cyanocobalamin 1,000 Mcg/Ml Inj, 1,000 MCG IM OF EACH MONTH, (Reported) Donepezil HCl 10 Mg Tablet, 10 MG PO DAILY, (Reported) Fluticasone/Vilanterol 1 Each Blst.w.dev, 1 PUFF INH DAILY, (Reported) Lovastatin 20 Mg Tablet, 20 MG PO DAILY, (Reported) Metoprolol Succinate 100 Mg Tab.er.24h, 100 MG PO DAILY, (Reported) Naproxen 500 Mg Tablet, 500 MG PO DAILY, (Reported) Nystatin 15 Gm Cream..g., TOP BID, (Reported) APPLY TO MICHAELLE AREA Risperidone 1 Mg Tablet, 1 MG PO HS, (Reported) Skin Cleanser Comb No.11 236 Ml [place], TP TID, (Reported) APPLY TO COCCYX AREA THREE TIMES DAILY FOR SPLIT UNTIL CLOSED Trazodone HCl 50 Mg Tablet, 50 MG PO HS, (Reported) Patient Home Medication List Home Medication List Reviewed: Yes Review of Systems Constitutional: no symptoms reported EENTM: no symptoms reported Respiratory: no symptoms reported Cardiovascular: no symptoms reported Gastrointestinal: no symptoms reported Genitourinary: no symptoms reported Musculoskeletal: see HPI Skin: no symptoms reported Psychiatric/Neurological: See HPI Past Qkgntxv-Jxrlrf-Dstptw Hx Past Med/Social Hx: Reviewed and Corrections made Patient Social History Alcohol Use: Denies Use Recreational Drug Use: No Recent Foreign Travel: No Contact w/Someone Who Travel: No Recent Infectious Disease Expo: No Recent Hopitalizations: No Immunizations Up To Date Tetanus Booster (TDap): More than 5yrs Date of Pneumonia Vaccine: Feb 03, 2009 Date of Influenza Vaccine: Nov 01, 2014 Seasonal Allergies Seasonal Allergies: No Past Medical History Surgeries: Yes (LEFT HIP REPAIR) Joint Replacement, Orthopedic Respiratory: Yes Asthma, COPD Currently Using CPAP: Yes Currently Using BIPAP: No Cardiac: Yes Aneurysm, High Cholesterol, Hypertension Neurological: Yes Dementia Reproductive Disorders: No Genitourinary: No Gastrointestinal: No Musculoskeletal: Yes Arthritis Endocrine: No HEENT: No Loss of Vision: Left Hearing Impairment: Deaf Cancer: No Psychosocial: No Integumentary: No Blood Disorders: No Adverse Reaction/Blood Tranf: No Family Medical History Alzheimer's disease 19 MOTHER Cardiovascular disease 19 FATHER G8 SISTER Physical Exam Vital Signs Vital Signs - First Documented 06/18/18 03:36 Temp 96.9 Pulse 63 Resp 18 B/P (MAP) 137/70 (92) O2 Delivery Room Air Capillary Refill : Less Than 3 Seconds Height, Weight, BMI Height: 6'0.00" Weight: 205lbs. 0.0oz. 92.102855lk; 27.8 BMI Method:Stated General Appearance: No Apparent Distress, WD/WN HEENT: PERRL/EOMI, Normal ENT Inspection Neck: Normal Inspection Cardiovascular: Regular Rate, Rhythm, Other (Mild edema of the LLE) Respiratory: Lungs Clear, Normal Breath Sounds, No Accessory Muscle Use Gastrointestinal: Non Tender, Soft Extremity: Other (dressing on the left hip clean dry and intact. No tenderness of the hip joint. No pain with rotation, flexion, or palpation of the hip. Mild pain in the mid left thigh. Capillary refill, sensation, and movement intact in the foot and toes. Pedal pulses not readily palpable in the left foot due to overlying edema.) Neurologic/Psychiatric: Alert, Other (confused but at baseline with dementia per family.) Skin: Normal Color, Warm/Dry Procedures/Interventions Date of ETT Placement: Jun 09, 2018 Progress/Results/Core Measures Results/Orders My Orders Orders - SONA SPRINGER MD Pelvis/Eddie Hips 5> Views (06/18/18 03:33) Femur, Left, 2 Views (06/18/18 04:26) Vital Signs/I&O 06/18/18 03:36 Temp 96.9 Pulse 63 Resp 18 B/P (MAP) 137/70 (92) O2 Delivery Room Air Blood Pressure Mean: 92 Progress Progress Note : Time: 04:41 Progress Note X-rays of both hips in the pelvis were reviewed by me. No acute abnormalities were identified. Patient was reexamined. He has no pain with palpation, rotation or flexion of the hip. He does have some tenderness in the mid thigh upon palpation. Femur x-ray has now been ordered. Patient denies any pain while at rest. Diagnostic Imaging Diagonstic Imaging: Xray Plain Films/CT/US/NM/MRI: pelvis, hip Comments X-rays of the pelvis and bilateral hips viewed by me. Reports not yet available. No acute abnormalities appreciated. Departure Impression Primary Impression: Left hip pain Additional Impression: Dementia Qualified Codes: F03.90 - Unspecified dementia without behavioral disturbance Disposition: 01 HOME, SELF-CARE Condition: Improved Departure-Patient Inst. Decision time for Depature: 05:20 Referrals: JASON PHELAN DO (PCP/Family) Primary Care Physician Patient Instructions: Hip Pain Add. Discharge Instructions: Contact the primary care provider or orthopedic surgeon if symptoms persist. If symptoms are certainly her return to the emergency room. All discharge instructions reviewed with patient and/or family. Voiced understanding. SONA SPRINGER MD June 18, 2018 04:32
--- NOTE | 2018-06-18 05:22 | NUR ---
REPORT TO GINA AT [facility]. GINA WILL ENSURE TRANSPORT OF PT BACK TO THEIR FACILITY.
[2018-06-18 05:45] VITALS: BP 145/69
--- NOTE | 2018-06-18 06:20 | NUR ---
[facility] STAFF HERE AT THIS TIME TO TRANSPORT BACK TO FACILITY.
--- NOTE | 2018-06-18 07:55 | Diagnostic Imaging Report ---
Indication: Pain. 5 views were obtained. Findings: There is stable post surgical change of a left hip arthroplasty. Hardware in satisfactory position. There is no fracture dislocation. Right hip is intact. Soft tissues are unremarkable. Impression: Stable left hip arthroplasty. No acute fracture or dislocation. Dictated by: Dictated on workstation # [id number]
--- NOTE | 2018-06-18 08:01 | Diagnostic Imaging Report ---
Indication: Pain. 5 views of the left femur were obtained. Findings: There are stable postsurgical changes of a left hip arthroplasty. There is severe 3 compartment osteoarthritic change in left knee. There is no fracture or dislocation. Soft tissues are unremarkable. Impression: Stable left hip arthroplasty. 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 Dictated by: Dictated on workstation # [id number]
== END 2018-06-18 06:26 | disposition home or self-care (01) ==
LOC: EDUNIT# 03:24 → ER 03:27
DX: M25.552 Pain in left hip (principal); F03.90 Unspecified dementia, unspecified severity, without behavioral disturbance, psychotic disturbance, mood disturbance, and anxiety; J44.9 Chronic obstructive pulmonary disease, unspecified; E78.00 Pure hypercholesterolemia, unspecified; I10 Essential (primary) hypertension; Z82.49 Family history of ischemic heart disease and other diseases of the circulatory system; Z96.642 Presence of left artificial hip joint; Z79.82 Long term (current) use of aspirin; Z79.51 Long term (current) use of inhaled steroids; X50.1XXA Overexertion from prolonged static or awkward postures, initial encounter
CPT/HCPCS: 73523; 73552

== ENCOUNTER 2018-06-29 20:15 | Inpatient (IN) | payer MEDICARE | END 2018-07-03 14:15 | disposition hospice, inpatient (51) | LOC: 4TH 07-01 14:26 → ER 20:15 → 4TH 22:07 | DX: T84.52XA Infection and inflammatory reaction due to internal left hip prosthesis, initial encounter (principal); F03.90 Unspecified dementia, unspecified severity, without behavioral disturbance, psychotic disturbance, mood disturbance, and anxiety; B95.61 Methicillin susceptible Staphylococcus aureus infection as the cause of diseases classified elsewhere; I10 Essential (primary) hypertension; J44.9 Chronic obstructive pulmonary disease, unspecified; E78.00 Pure hypercholesterolemia, unspecified; M19.91 Primary osteoarthritis, unspecified site; G47.9 Sleep disorder, unspecified; F32.9 Major depressive disorder, single episode, unspecified; H91.90 Unspecified hearing loss, unspecified ear ==